=== PATIENT | male | born 1990 | race Caucasian/White ===

== ENCOUNTER 2022-12-09 18:36 | Emergency (ER) | payer OTHER ==
--- OUTSIDE RECORDS SUMMARY | 2022-12-09 18:40 | XMS REPORT | Continuity of Care Document ---
:1990 Author Organization [facility] t Address [address] [place] [address] Care Team Providers Name Role Phone Leah Martinez MD Primary Care Physician LEAH MARTINEZ Attending Clinician Unavailable Leah Martinez MD Attending Clinician Doctor Unassigned, [place] Attending Clinician Unavailable [facility] Nurse Visit Jennifer Attending Clinician UnavailFrederic Wright MD Attending Clinician FREDERIC COSME Attending Clinician Unavailable BEKAH QUINN Attending Clinician Unavailable BEKAH QUINN Attending Clinician Unavailable PRADEEP CRUZ Attending Clinician Unavailable SHY PHILLIP Attending Clinician Unavailable Payers Payer Name Policy Type Policy Number Effective Date Expiration Date Edvin rojas [facility] [id number] 2016 00:00:00 PLUS Problems Condition Condition Condition Status Onset Resolution Last Treating Co mments Source Name Details Category Date Date Treatment Clinician Date No known No known Disease Unive rs active active ity of problems problems [facility] Allergies, Adverse Reactions, Alerts Allergy Allergy Status Severity Reaction(s) Onset Inactive Treating Comm ents Source Name Type Date Date Clinician NO KNOWN Drug Active Univers ALLERGIE Class ity of S [facility] Social History Social Habit Start Date Stop Date Quantity Comments Source History of tobacco Cigarette Smoker University of use [facility] Exposure to 2022-08-09 2022-08-19 Not sure [facility]-CoV-2 (event) 00:00:00 15:49:00 [facility] Alcohol intake 2022-05-25 2022-05-25 Ex-drinker [facility] 00:00:00 00:00:00 (finding) [facility] Cigarettes smoked 2022-05-14 2022-05-14 Univers ity of current (pack per 00:00:00 00:00:00 [facility] ) - Reported Branch Tobacco use and 2022-05-14 2022-05-14 Smokeless Universit y of exposure 00:00:00 00:00:[address] tobacco non-[address] [facility] 1990 [facility] Smoking Status Start Date Stop Date Source Smokes tobacco daily 2022-05-14 00:00:00 [facility] ity of [facility] Medications Ordered Filled Start Stop Current Ordering Indication Dosage Frequency Signature Comments Components Source Medication Medication Date Date Medication? Clinician (SIG) Name Name ALPRAZolam Yes [id number] .5mg Take 1 U nivers 0.5 mg 2-08 tablet by ity of tablet 00:00: mouth in [place] [id number] the Medical morning Branch and 1 tablet in the evening. ALPRAZolam Yes [id number] .5mg Take 1 U nivers 0.5 mg 2-08 tablet by ity of tablet 00:00: mouth in [place] the Medical morning Branch and 1 tablet in the evening. BUSPIRONE 2021-07 Yes [id number] TAKE 1 Un otoniel 10 mg 0-19 TABLET BY ity of tablet 00:00: MOUTH [place] TWICE A Medical DAY Branch BUSPIRONE 2021-07 Yes [id number] TAKE 1 Un otoniel 10 mg 0-19 TABLET BY ity of tablet 00:00: MOUTH [place] TWICE A Medical DAY Branch BUSPIRONE 2021-07 Yes [id number] TAKE 1 Un oton[place] 10 mg 0-19 TABLET BY ity of tablet 00:00: MOUTH [place] TWICE A Medical DAY Branch BUSPIRONE 2021-07 Yes [id number] TAKE 1 Un otoniel 10 mg 0-19 TABLET BY ity of tablet 00:00: MOUTH [place] TWICE A Medical DAY Branch BUSPIRONE 2021-07 Yes [id number] TAKE 1 Un otoniel 10 mg 0-19 TABLET BY ity of tablet 00:00: MOUTH [place] TWICE A Medical DAY Branch BUSPIRONE 2021-07 Yes [id number] TAKE 1 Un otoniel 10 mg 0-19 TABLET BY ity of tablet 00:00: MOUTH TWICE A Medical DAY Branch BUSPIRONE 2021- Yes [id number] TAKE 1 Un otoniel 10 mg 0-19 TABLET BY ity of tablet 00:00: MOUTH TWICE A Medical DAY Branch BUSPIRONE 2021-1 Yes [id number] TAKE 1 Un otoniel 10 mg 0-19 TABLET BY ity of tablet 00:00: MOUTH TWICE A Medical DAY Branch BUSPIRONE 2021-1 Yes [id number] TAKE 1 Un otoniel 10 mg 0-19 TABLET BY ity of tablet 00:00: MOUTH TWICE A Medical DAY Branch BUSPIRONE 2021-1 Yes [id number] TAKE 1 Un otoniel 10 mg 0-19 TABLET BY ity of tablet 00:00: MOUTH TWICE A Medical DAY Branch BUSPIRONE 2021-1 Yes [id number] TAKE 1 Un otoniel 10 mg 0-19 TABLET BY ity of tablet 00:00: MOUTH TWICE A Medical DAY Branch PROPRANOLOL 2022-0 Yes [id number] TAKE 1 Univers 10 mg 9-13 TABLET BY ity of tablet 00:00: MOUTH TWICE A Medical DAY Branch PROPRANOLOL 2022-0 Yes [id number] TAKE 1 Univers 10 mg 9-13 TABLET BY ity of tablet 00:00: MOUTH TWICE A Medical DAY Branch PROPRANOLOL 2022-0 Yes [id number] TAKE 1 Univers 10 mg 9-13 TABLET BY ity of tablet 00:00: MOUTH TWICE A Medical DAY Branch PROPRANOLOL 2022-0 Yes [id number] TAKE 1 Univers 10 mg 9-13 TABLET BY ity of tablet 00:00: MOUTH TWICE A Medical DAY Branch PROPRANOLOL 2022-0 Yes [id number] TAKE 1 Univers 10 mg 9-13 TABLET BY ity of tablet 00:00: MOUTH TWICE A Medical DAY Branch PROPRANOLOL 2022-0 Yes [id number] TAKE 1 Univers 10 mg 9-13 TABLET BY ity of tablet 00:00: MOUTH TWICE A Medical DAY Branch PROPRANOLOL 2022-0 Yes [id number] TAKE 1 Univers 10 mg 9-13 TABLET BY ity of tablet 00:00: MOUTH TWICE A Medical DAY Branch PROPRANOLOL 2022-0 Yes [id number] TAKE 1 Univers 10 mg 9-13 TABLET BY ity of tablet 00:00: MOUTH TWICE A Medical DAY Branch PROPRANOLOL 2-0 Yes [id number] TAKE 1 Univers 10 mg 9-13 TABLET BY ity of tablet 00:00: MOUTH [place] 00 TWICE A Medical DAY Branch PROPRANOLOL 2-0 Yes [id number] TAKE 1 Univers 10 mg 9-13 TABLET BY ity of tablet 00:00: MOUTH [place] 00 TWICE A Medical DAY Branch PROPRANOLOL 2022-0 Yes [id number] TAKE 1 Univers 10 mg 9-13 TABLET BY ity of tablet 00:00: MOUTH [place] 00 TWICE A Medical DAY Branch PROPRANOLOL 2022-0 Yes [id number] TAKE 1 Univers 10 mg 9-13 TABLET BY ity of tablet 00:00: MOUTH [place] 00 TWICE A Medical DAY Branch QUEtiapine 2021-0 Yes [id number] 50mg Take 1 U nivers (SEROQUEL) 8-08 tablet by ity of 50 mg 00:00: mouth at [place] tablet 00 bedtime. Medical Branch QUEtiapine 2021-0 Yes [id number] 50mg Take 1 U nivers (SEROQUEL) 8-08 tablet by ity of 50 mg 00:00: mouth at [place] tablet 00 bedtime. Medical Branch QUEtiapine 0 Yes [id number] 50mg Take 1 U nivers (SEROQUEL) 8-08 tablet by ity of 50 mg 00:00: mouth at [place] tablet 00 bedtime. Medical Branch QUEtiapine 0 Yes [id number] 50mg Take 1 U nivers (SEROQUEL) 8-08 tablet by ity of 50 mg 00:00: mouth at [place] tablet 00 bedtime. Medical Branch QUEtiapine 2021-0 Yes [id number] 50mg Take 1 U nivers (SEROQUEL) 8-08 tablet by ity of 50 mg 00:00: mouth at [place] tablet 00 bedtime. Medical Branch QUEtiapine 0 Yes [id number] 50mg Take 1 U nivers (SEROQUEL) 8-08 tablet by ity of 50 mg 00:00: mouth at [place] tablet 00 bedtime. Medical Branch QUEtiapine 0 Yes [id number] 50mg Take 1 U nivers (SEROQUEL) 8-08 tablet by ity of 50 mg 00:00: mouth at [place] tablet 00 bedtime. Medical Branch QUEtiapine 2021-0 Yes [id number] 50mg Take 1 U nivers (SEROQUEL) 8-08 tablet by ity of 50 mg 00:00: mouth at [place] tablet 00 bedtime. Medical Branch QUEtiapine 0 Yes [id number] 50mg Take 1 U nivers (SEROQUEL) 8-08 tablet by ity of 50 mg 00:00: mouth at [place] tablet 00 bedtime. Medical Branch QUEtiapine Yes [id number] 50mg Take 1 U nivers (SEROQUEL) 8-08 tablet by ity of 50 mg 00:00: mouth at [place] tablet 00 bedtime. Medical Branch QUEtiapine Yes [id number] 50mg Take 1 U nivers (SEROQUEL) 8-08 tablet by ity of 50 mg 00:00: mouth at [place] tablet 00 bedtime. Medical Branch QUEtiapine Yes [id number] 50mg Take 1 U nivers (SEROQUEL) 8-08 tablet by ity of 50 mg 00:00: mouth at [place] tablet 00 bedtime. Medical Branch QUEtiapine Yes [id number] 50mg Take 1 U nivers (SEROQUEL) 8-08 tablet by ity of 50 mg 00:00: mouth at [place] tablet 00 bedtime. Medical Branch QUEtiapine Yes [id number] 50mg Take 1 U nivers (SEROQUEL) 8-08 tablet by ity of 50 mg 00:00: mouth at [place] tablet 00 bedtime. Medical Branch ALPRAZOLAM Yes [id number] TAKE 1 U nivers 0.5 mg 3-17 TABLET BY ity of tablet 00:00: MOUTH [place] 00 TWICE A Medical DAY Branch ALPRAZOLAM Yes [id number] TAKE 1 U nivers 0.5 mg 3-17 TABLET BY ity of tablet 00:00: MOUTH [place] 00 TWICE A Medical DAY Branch ALPRAZOLAM 0 Yes [id number] TAKE 1 U nivers 0.5 mg 3-17 TABLET BY ity of tablet 00:00: MOUTH [place] 00 TWICE A Medical DAY Branch ALPRAZOLAM 0 Yes [id number] TAKE 1 U nivers 0.5 mg 3-17 TABLET BY ity of tablet 00:00: MOUTH [place] 00 TWICE A Medical DAY Branch ALPRAZOLAM Yes [id number] TAKE 1 U nivers 0.5 mg 3-17 TABLET BY ity of tablet 00:00: MOUTH [place] 00 TWICE A Medical DAY Branch ALPRAZOLAM 0 Yes [id number] TAKE 1 U nivers 0.5 mg 3-17 TABLET BY ity of tablet 00:00: MOUTH 00 TWICE A Medical DAY Branch ALPRAZOLAM 0 Yes [id number] TAKE 1 U nivers 0.5 mg 3-17 TABLET BY ity of tablet 00:00: MOUTH [place] 00 TWICE A Medical DAY Branch ALPRAZOLAM 0 Yes [id number] TAKE 1 U nivers 0.5 mg 3-17 TABLET BY ity of tablet 00:00: MOUTH 00 TWICE A Medical DAY Branch ALPRAZOLAM 0 Yes [id number] TAKE 1 U nivers 0.5 mg 3-17 TABLET BY ity of tablet 00:00: MOUTH 00 TWICE A Medical DAY Branch ALPRAZOLAM 0 Yes [id number] TAKE 1 U nivers 0.5 mg 3-17 TABLET BY ity of tablet 00:00: MOUTH 00 TWICE A Medical DAY Branch ALPRAZOLAM 0 Yes [id number] TAKE 1 U nivers 0.5 mg 3-17 TABLET BY ity of tablet 00:00: MOUTH 00 TWICE A Medical DAY Branch ALPRAZOLAM 0 2022- No [id number] TAKE 1 Univers 0.5 mg 3-17 02-08 TABLET BY ity of tablet 00:00: 00:00 MOUTH [place] 00 :00 TWICE A Medical DAY Branch ALPRAZOLAM 2021-0 2022- No [id number] TAKE 1 Univers 0.5 mg 3-17 02-08 TABLET BY ity of tablet 00:00: 00:00 MOUTH [place] 00 :00 TWICE A Medical DAY Branch busPIRone 2020-07 Yes [id number] 10mg Take 1 Un otoniel 10 mg 1-17 tablet by ity of tablet 00:00: mouth 2 00 (two) Medical times Branch daily. benztropine 2020-07 Yes [id number] 2mg Take 1 Univers 2 mg tablet 1-17 tablet by ity of 00:00: mouth 2 00 (two) Medical times Branch daily. propranoloL 2020-07 Yes [id number] 10mg Take 1 Univers 10 mg 1-17 tablet by ity of tablet 00:00: mouth 2 00 (two) Medical times Branch daily. busPIRone 2020-07 Yes [id number] 10mg Take 1 Un otoniel 10 mg 1-17 tablet by ity of tablet 00:00: mouth (two) Medical times Branch daily. benztropine 2020-07 Yes [id number] 2mg Take 1 Univers 2 mg tablet 1-17 tablet by ity of 00:00: mouth (two) Medical times Branch daily. propranoloL 2020-07 Yes [id number] 10mg Take 1 Univers 10 mg 1-17 tablet by ity of tablet 00:00: mouth (two) Medical times Branch daily. busPIRone 2020-07 Yes [id number] 10mg Take 1 Un otoniel 10 mg 1-17 tablet by ity of tablet 00:00: mouth (two) Medical times Branch daily. benztropine 2020-07 Yes [id number] 2mg Take 1 Univers 2 mg tablet 1-17 tablet by ity of 00:00: mouth (two) Medical times Branch daily. benztropine 2020-07 Yes [id number] 2mg Take 1 Univers 2 mg tablet 1-17 tablet by ity of 00:00: mouth (two) Medical times Branch daily. benztropine 2020-07 Yes [id number] 2mg Take 1 Univers 2 mg tablet 1-17 tablet by ity of 00:00: mouth (two) Medical times Branch daily. benztropine 2020-07 Yes [id number] 2mg Take 1 Univers 2 mg tablet 1-17 tablet by ity of 00:00: mouth (two) Medical times Branch daily. benztropine 2020-07 Yes [id number] 2mg Take 1 Univers 2 mg tablet 1-17 tablet by ity of 00:00: mouth (two) Medical times Branch daily. benztropine 2020-07 Yes [id number] 2mg Take 1 Univers 2 mg tablet 1-17 tablet by ity of 00:00: mouth (two) Medical times Branch daily. benztropine 2020-07 Yes [id number] 2mg Take 1 Univers 2 mg tablet 1-17 tablet by ity of 00:00: mouth (two) Medical times Branch daily. benztropine 2020-07 Yes [id number] 2mg Take 1 Univers 2 mg tablet 1-17 tablet by ity of 00:00: mouth 2 [place] (two) Medical times Branch daily. benztropine 2020-07 Yes [id number] 2mg Take 1 Univers 2 mg tablet 1-17 tablet by ity of 00:00: mouth 2 [place] 00 (two) Medical times Branch daily. benztropine 2020-07 Yes [id number] 2mg Take 1 Univers 2 mg tablet 1-17 tablet by ity of 00:00: mouth 2 [place] 00 (two) Medical times Branch daily. benztropine 2020-07 Yes [id number] 2mg Take 1 Univers 2 mg tablet 1-17 tablet by ity of 00:00: mouth 2 [place] (two) Medical times Branch daily. benztropine 2020-07 Yes [id number] 2mg Take 1 Univers 2 mg tablet 1-17 tablet by ity of 00:00: mouth 2 [place] (two) Medical times Branch daily. busPIRone 2020-07- No [id number] 10mg Take 1 U nivers 10 mg 1-17 10-19 tablet by ity of tablet 00:00: 00:00 mouth 2 [place] 00 :00 (two) Medical times Branch daily. propranoloL 2020-07- No [id number] 10mg Take 1 Univers 10 mg 1-17 09-13 tablet by ity of tablet 00:00: 00:00 mouth 2 [place] 00 :00 (two) Medical times Branch daily. mirtazapine 0 Yes Univer s 15 mg 9-18 ity of tablet 00:00: [place] Medical Branch mirtazapine 2020-0 Yes Univer s 15 mg 9-18 ity of tablet 00:00: [place] Medical Branch mirtazapine 2020-0 Yes Univer s 15 mg 9-18 ity of tablet 00:00: [place] Medical Branch mirtazapine 2020-0 Yes Univer s 15 mg 9-18 ity of tablet 00:00: [place] Medical Branch mirtazapine 2020-0 Yes Univer s 15 mg 9-18 ity of tablet 00:00: [place] Medical Branch mirtazapine 2020-0 Yes Univer s 15 mg 9-18 ity of tablet 00:00: [place] 00 Medical Branch mirtazapine 2021-0 Yes Univer s 15 mg 9-18 ity of tablet 00:00: [place] 00 Medical Branch mirtazapine 2021-0 Yes Univer s 15 mg 9-18 ity of tablet 00:00: [place] 00 Medical Branch mirtazapine 2021-0 Yes Univer s 15 mg 9-18 ity of tablet 00:00: [place] 00 Medical Branch mirtazapine 2021-0 Yes Univer s 15 mg 9-18 ity of tablet 00:00: [place] [address] Medical Branch mirtazapine 2021-0 Yes Univer s 15 mg 9-18 ity of tablet 00:00: [place] [address] Medical Branch mirtazapine 1-0 Yes Univer s 15 mg 9-18 ity of tablet 00:00: [place] [address] Medical Branch mirtazapine 1-0 Yes Univer s 15 mg 9-18 ity of tablet 00:00: [place] [address] Medical Branch mirtazapine 2021-0 Yes Univer s 15 mg 9-18 ity of tablet 00:00: [place] 00 Medical Branch hydrOXYzine 2021-0 Yes Univer s 25 mg 9-16 ity of capsule 00:00: [place] [address] Medical Branch hydrOXYzine 2021-0 Yes Univer s 25 mg 9-16 ity of capsule 00:00: [place] [address] Medical Branch hydrOXYzine 1-0 Yes Univer s 25 mg 9-16 ity of capsule 00:00: [place] [address] Medical Branch hydrOXYzine 2021-0 Yes Univer s 25 mg 9-16 ity of capsule 00:00: [place] 00 Medical Branch hydrOXYzine 2021-0 Yes Univer s 25 mg 9-16 ity of capsule 00:00: [place] [address] Medical Branch hydrOXYzine 2021-0 Yes Univer s 25 mg 9-16 ity of capsule 00:00: [place] [address] Medical Branch hydrOXYzine 1-0 Yes Univer s 25 mg 9-16 ity of capsule 00:00: [place] [address] Medical Branch hydrOXYzine 2021-0 Yes Univer s 25 mg 9-16 ity of capsule 00:00: [place] [address] Medical Branch hydrOXYzine 2021-0 Yes Univer s 25 mg 9-16 ity of capsule 00:00: [place] [address] Medical Branch hydrOXYzine 1-0 Yes Univer s 25 mg 9-16 ity of capsule 00:00: [place] 00 Medical Branch hydrOXYzine 2020-0 Yes Univer s 25 mg 9-16 ity of capsule 00:00: [place] 00 Medical Branch hydrOXYzine 2020-0 3- No Unive rs 25 mg 03-27 ity of capsule 00:00: 00:00 [place] 00 :00 Medical Branch hydrOXYzine 2020-0 3- No Unive rs 25 mg 03-27 ity of capsule 00:00: 00:00 [place] 00 :00 Medical Branch Vital Signs Vital Name Observation Time Observation Value Comments Source Systolic blood 2022-08-19 21:56:00 136 mm[Hg] Univer sity of [facility] Branch Diastolic blood 2022-08-19 21:56:00 86 mm[Hg] [facility]ive [facility] of [facility] Branch Heart rate 2022-08-19 21:51:00 99 /min Universi ty of [facility] Body height 2022-08-19 21:51:00 172.7 cm Universi ty of [facility] Body weight 2022-08-19 21:51:00 73.029 kg Universi ty of [facility] BMI 2022-08-19 21:51:00 24.48 kg/m2 Universi ty of [facility] Body height 2022-05-25 16:59:00 172.7 cm Universi ty of [facility] Body height 2022-05-08 13:45:00 177.8 cm Universi ty of [facility] Systolic blood 2022-02-16 16:29:00 135 mm[Hg] Univer sity of [facility] Branch Diastolic blood 2022-02-16 16:29:00 87 mm[Hg] Unive rsity of [facility] Branch Heart rate 2022-02-16 16:29:00 71 /min Universi ty of [facility] Branch Body height 2022-02-16 16:29:00 177.8 cm Universi ty of [facility] Branch Body weight 2022-02-16 16:29:00 64.864 kg Universi ty of [facility] BMI 2022-02-16 16:29:00 20.52 kg/m2 [facility]i ty [facility] Procedures Procedure Date / Time Performing Clinician Source Performed ASSIGNMENT OF BENEFITS 2022-08-19 21:50:10 Doctor Unassigned, No [facility] Name Medical Branch AUTHORIZATION FOR 2022-08-03 06:01:00 Doctor Unassigned, No [facility] RELEASE OF [facility] Encounters Start End Encounter Admission Attending Care Care Encounter Source Date/Time Date/Time Type Type Clinicians Facility Department ID 2022-09-07 2022-09-07 Outpatient [facility] [id number] [place] 11:41:51 11:41:51 [id number] [facility] 2022-09-02 2022-09-02 Outpatient Tommy MARTINEZ [facility] [id number] Univers 16:00:00 16:00:00 LEAH [facility] 2022-08-25 2022-08-25 Outpatient [facility] [id number] [place] 16:39:43 16:39:43 [id number] [facility] 2022-08-19 2022-08-19 Office KelseaRUST 1.2.840.114 [id number] Univers 16:00:00 16:15:00 Visit [facility] [id number] it y of [place] [id number] Kirill as CHAD?BLEA [id number] [address] MEDICAL OFFICE BUILDING 2022-08-19 2022-08-19 Outpatient Tommy MARTINEZ [facility] [id number] Univers 16:00:00 16:00:00 LEAH [facility] 2022-08-19 2022-08-19 Orders Doctor SUERO 1.2.840.114 [id number] Univers 00:00:00 00:00:00 Only Unassigned, KORIN [id number] ity of [place] [facility] [id number] Kirill as [id number] [address] 2022-08-03 2022-08-03 Orders Doctor SUERO 1.2.840.114 [id number] Univers 00:00:00 00:00:00 Only Unassigned, KORIN [id number] ity of [place] [facility] [id number] Kirill as [id number] [address] 2022-05-25 2022-05-25 Nurse Esposito [facility] Nurse Visit Jennifer [facility] 1.2.840.114 [id number] Univers 11:00:00 11:15:00 Visit Frederic Cosme MULTISPEC 350.1.13.1 0 ity of [place] [id number] [facility] [id number] [address] DIABETES CLINIC 2022-05-25 2022-05-25 Outpatient Tommy COSME [facility] [id number] Univers 11:00:00 11:00:00 FREDERIC marino [facility] 2022-05-21 2022-05-21 Outpatient [facility] [id number] [place] 09:01:05 09:01:05 [address] [place] 2022 2022 Outpatient [facility] [id number] [place] 15:04:46 15:04:46 [address] [place] 2022-05-14 2022-05-14 Outpatient Tommy COSME [facility] [id number] Univers 08:30:00 17:02:11 FREDERIC marino [facility] 2022-05-14 2022-05-14 Office BaRUST 1.2.840.114 [id number] Univers 08:30:00 09:00:00 Visit Frederic Sanders MULTISPEC [id number] ity of [place] 4.2.7.2.686 [facility] [id number] [address] DIABETES CLINIC 2022-05-12 2022-05-12 Outpatient Tommy MARTINEZ [facility] [id number] Univers 09:45:00 09:45:00 LEAH marino [facility] 2022-05-08 2022-05-08 Office Bekah Quinn [facility] 1.2.840.114 [id number] Univers 09:00:00 09:00:00 Visit MULTISPEC [id number] ity of [place] 4.2.7.2.686 [facility] [id number] [address] DIABETES CLINIC 2022-05-08 2022-05-08 Outpatient BEKAH DE LA ROSA [facility] [id number] Univers 09:00:00 08:59:01 BEKAH QUINN y [facility] 2022-05-06 2022-05-06 Outpatient Tommy MARTINEZ [facility] [id number] Univers 11:30:00 11:30:00 LEAH marino [facility] 2022-05-05 2022-05-05 [facility] 1.2.840.114 [id number] Univers 00:00:00 00:00:00 [facility] [id number] it y of [place] 4.2.7.2.686 Kirill as CHAD?BLEA [id number] [address] MEDICAL OFFICE [facility] 2022-04-29 2022-04-29 [facility] 1.2.840.114 [id number] Univers 00:00:00 00:00:00 Leah HEALTH 350.1.13.10 it y of [place] 4.2.7.2.686 Kirill as CHAD?BLEA [id number] [address] OFFICE [facility] 2022-03-24 2022-03-24 [facility] 1.2.840.114 [id number] [facility] 00:00:00 00:00:00 Leah HEALTH 350.1.13.10 it y of [place] 4.2.7.2.686 Kirill as CHAD?BLEA [id number] [address] OFFICE [facility] 2022-03-19 2022-03-19 Outpatient Tommy MARTINEZ [facility] [id number] Univers 13:00:00 13:00:00 LEAH [facility] 2022-02-16 2022-02-16 [facility] 1.2.840.114 [id number] Univers 11:15:00 11:30:00 Visit [facility] 350.1.13.10 it y of [place] 4.2.7.2.686 Kirill as CHAD?BLEA [id number] [address] OFFICE [facility] 2022-02-16 2022-02-16 Outpatient Tommy MARTINEZ [facility] [id number] Univers 11:15:00 11:15:00 LEAH [facility] 2022-02-16 2022-02-16 [facility] [id number] Univers 11:15:00 11:15:00 LEAH alexia [facility] 2022-02-16 2022-02-16 Telephone [facility] 1.2.840.114 [id number] Univers 00:00:00 00:00:00 [facility] [id number] it y of [place] [id number] Kirill as CHAD?BLEA [id number] [address] MEDICAL OFFICE [facility] 2021-10-27 2021-10-27 [facility] 1.2.840.114 [id number] Univers 00:00:00 00:00:00 Leah HEALTH 350.1.13.10 it y of [place] 4.2.7.2.686 Kirill as CHAD?BLEA [id number] [address] OFFICE [facility] 2021-08-18 2021-08-18 [facility] 1.2.840.114 [id number] Univers 00:00:00 00:00:00 Leah HEALTH [id number] it y of [place] 4.2.7.2.686 Kirill as CHAD?BLEA [id number] [address] 2021-07-18 2021-07-18 [facility] 1.2.840.114 [id number] Univers 00:00:00 00:00:00 Leah HEALTH 350.1.13.10 it y of [place] 4.2.7.2.686 Kirill as CHAD?BLEA [id number] [address] OFFICE [facility] 2021-07-07 2021-07-07 [facility] [id number] Univers 13:15:00 13:15:00 LEAH alexia [facility] 2021-06-27 2021-06-27 Telephone [facility] 1.2.840.114 [id number] Univers 00:00:00 00:00:00 Leah HEALTH 350.1.13.10 it y of [place] [id number] Kirill as CHAD?BLEA [id number] [address] MEDICAL OFFICE [facility] 2021-06-12 2021-06-12 [facility] [id number] Univers 09:30:00 09:30:00 PRADEEP alexia [facility] 2021-06-10 2021-06-10 [facility] [id number] Univers 13:30:00 13:30:00 PRADEEP [facility] 2021-06-03 2021-06-03 [facility] [id number] Univers 15:15:00 15:15:00 LEAH [facility] 2021-05-28 2021-05-28 Office [facility] 1.2.840.114 [id number] Univers 16:46:42 17:04:56 Visit [place] [id number] [facility] [id number] Kirill as CHAD?BLEA [id number] [address] OFFICE [facility] 2021-05-28 2021-05-28 [facility] [id number] Univers 16:15:00 17:04:56 [facility] 2021-05-23 2021-05-23 Telephone [facility] 1.2.840.114 [id number] Univers 00:00:00 00:00:00 [facility] [id number] it y of [place] [id number] Kirill as CHAD?BLEA [id number] [address] MEDICAL OFFICE [facility] 2021-05-01 2021-05-01 [facility] [id number] Univers 09:30:00 09:30:00 PRADEEP [facility] 2021-04-09 2021-04-09 Office [facility] [id number] Univers 13:56:04 14:11:04 Visit [facility] [id number] it y of [place] [id number] Kirill as Chad?Blea [phone] N[place] mitch haque [address] [place] [address] Medical Office Building 2021-04-09 2021-04-09 Outpatient Tommy [facility]ARTINEZ [facility] [id number] Univers 14:00:00 14:00:00 LEAH [facility] 2021-04-08 2021-04-08 Outpatient Tommy GREGORIOASHLEY [facility] [id number] Univers 14:15:00 14:15:00 LEAH [facility] 2021-04-08 2021-04-08 Outpatient Tommy [facility]IOASHLEY [facility] [id number] Univers 09:00:00 09:00:00 LEAH [facility] 2021-04-02 2021-04-02 Outpatient Tommy PHILLIP [facility] [id number] Univers 10:30:00 10:30:00 SHY [facility] 2021-04-02 2021-04-02 Orders Doctor NIMO [id number] Univers 00:00:00 00:00:00 Only Unassigned, KORIN [id number] ity of [place] [facility] [id number] Kirill as [phone] [address] 2020-04-15 2020-04-15 Outpatient Tommy [facility]ARTINEZ [facility] [id number] Univers 09:00:00 09:00:00 [facility] 2020-04-03 2020-04-03 Outpatient Tommy [facility]INEZ [facility] [id number] Univers 09:15:00 09:15:00 LEAH [facility] 2020-03-04 2020-03-04 Outpatient Tommy [facility]ARTINZE [facility] [id number] Univers 09:30:00 09:30:00 LEAH [facility] 2020-01-15 2020-01-15 Outpatient Tommy [facility]INEZ [facility] [id number] Univers 14:30:00 14:30:00 [facility] 2020-01-02 2020-01-02 Outpatient Tommy [facility]INEZ [facility] [id number] Univers 13:30:00 13:30:00 [facility] Results This patient has no known results.
--- NOTE | 2022-12-09 20:02 | ER ---
Nurse's Notes [facility] Name: Mickey Lee Age: 32 yrs Sex: Male : 1990 Arrival Date: 12/09/2022 Time: 18:36 Bed 11 Private MD: Diagnosis: Pain in left foot Presentation: 12/09 18:50 Chief complaint: Patient states: jumped into a pool and landed on side of left foot. iw Coronavirus screen: At this time, the client does not indicate any symptoms associated with coronavirus-19. Ebola Screen: Patient negative for fever greater than or equal to 101.5 degrees Fahrenheit, and additional compatible Ebola Virus Disease symptoms Patient denies exposure to infectious person. Patient denies travel to an Ebola-affected area in the 21 days before illness onset. No symptoms or risks identified at this time. Initial Sepsis Screen: Does the patient meet any 2 criteria? No. Patient's initial sepsis screen is negative. Does the patient have a suspected source of infection? No. Patient's initial sepsis screen is negative. Risk Assessment: Do you want to hurt yourself or someone else? Patient reports no desire to harm self or others. Onset of symptoms was December 09, 2022. 18:50 Method Of Arrival: Wheelchair iw 18:50 Acuity: MISBAH 4 iw Historical: - Allergies: 18:51 No Known Allergies; iw - PMHx: 18:51 Anxiety; Depression; Schizophrenia; Tachycardia; iw - Social history:: Smoking status: Patient reports the use of cigarette tobacco products. Assessment: 20:28 General: Appears in no apparent distress. Pain: Complains of pain in dorsum of left mb9 foot. Neuro: Arriola Agitation-Sedation Scale (RASS): 0 - Alert and Calm Level of Consciousness is awake, alert, obeys commands, Oriented to person, place, time, situation, Appropriate for age. Derm: Skin is pink, warm \T\ dry. Musculoskeletal: Range of motion: intact in all extremities. Vital Signs: 18:50 BP 137 / 115; Pulse 109; Resp 16; Temp 98.8; Pulse Ox 100% on R/A; iw 20:29 BP 130 / 88; Pulse 84; Resp 16; Pulse Ox 100% on R/A; mb9 ED Course: 18:41 Patient arrived in ED. kj1 18:43 Mickey Delgadillo PA is PHCP. cp 18:43 Adebayo Wang MD is Attending Physician. cp 18:51 Triage completed. iw 18:52 Arm band placed on. iw 19:50 Fernanda Shields, RN is Primary Nurse. mb9 20:01 Uriel Mckoy MD is Referral Physician. cp 20:12 XRAY Foot LEFT 3 View In Process Unspecified. EDMS 20:29 No provider procedures requiring assistance completed. Patient did not have IV access mb9 during this emergency room visit. Administered Medications: 20:07 Drug: Ibuprofen PO 800 mg Route: PO; mb9 20:07 Follow up: Response: No adverse reaction mb9 20:07 Drug: Hydrocodone-Acetaminophen PO (7.5 mg-325 mg) 1 tabs Route: PO; mb9 20:07 Follow up: Response: No adverse reaction mb9 Outcome: 20:01 Discharge ordered by MD. cp 20:29 Discharged to home via wheelchair. mb9 20:29 Condition: stable 20:29 Discharge instructions given to patient, Instructed on discharge instructions, follow up and referral plans. Demonstrated understanding of instructions, follow-up care, medications, Prescriptions given X 1. 20:29 Patient left the ED. mb9 Signatures: Dispatcher [employer] EDMS Suzanne Matamoros, SAHIL RN Mickey Venegas PA PA cp Cindy Lawrence kj1 Fernanda Shields, RN RN mb9
--- NOTE | 2022-12-09 20:02 | EDPHYS ---
Physician Documentation [facility] Name: Mickey Lee Age: 32 yrs Sex: Male : 1990 Arrival Date: 12/09/2022 Time: 18:36 Bed 11 Private MD: ED Physician Adebayo Wang HPI: 12/09 19:00 This 32 yrs old Male presents to ER via Wheelchair with complaints of Foot Injury. cp 19:00 The patient presents with an injury, pain, that is acute. The complaints affect the cp lateral aspect of left foot and dorsum of left foot. Context: resulted from jumping into pool. Historical: - Allergies: 18:51 No Known Allergies; iw - PMHx: 18:51 Anxiety; Depression; Schizophrenia; Tachycardia; iw - Social history:: Smoking status: Patient reports the use of cigarette tobacco products. ROS: 19:05 Constitutional: Negative for body aches, chills, fever, poor PO intake. cp 19:05 Neck: Negative for pain with movement, pain at rest. cp 19:05 Cardiovascular: Negative for chest pain. 19:05 Respiratory: Negative for cough, shortness of breath, wheezing. 19:05 Abdomen/GI: Negative for abdominal pain, nausea, vomiting, and diarrhea. 19:05 MS/extremity: Positive for pain, of the left foot, Negative for decreased range of motion, deformity, paresthesias. 19:05 Neuro: Negative for altered mental status, dizziness, headache, weakness. 19:05 All other systems are negative. Exam: 19:10 Constitutional: The patient appears in no acute distress, alert, awake, non-toxic, well cp developed, well nourished, uncomfortable. 19:10 Head/Face: Normocephalic, atraumatic. cp 19:10 Chest/axilla: Inspection: normal. 19:10 Cardiovascular: Rate: normal, Pulses: Pulses are 2+ in left dorsalis pedis artery. 19:10 Respiratory: the patient does not display signs of respiratory distress, Respirations: normal, no use of accessory muscles, no retractions. 19:10 Musculoskeletal/extremity: Extremities: grossly normal except: noted in the left foot: pain, tenderness to palpation dorsum left foot and mild swelling, There is no evidence of decreased ROM, deformity. Vital Signs: 18:50 BP 137 / 115; Pulse 109; Resp 16; Temp 98.8; Pulse Ox 100% on R/A; iw 20:29 BP 130 / 88; Pulse 84; Resp 16; Pulse Ox 100% on R/A; mb9 MDM: 18:54 Patient medically screened. cp 19:10 Differential diagnosis: dislocation, closed fracture, contusion, sprain. cp 19:58 Data reviewed: vital signs, nurses notes, radiologic studies, plain films. Independent cp interpretation of the following test(s) in the Emergency Department X-Ray: My interpretation is left foot negative for fracture. 20:00 Counseling: I had a detailed discussion with the patient and/or guardian regarding: the cp historical points, exam findings, and any diagnostic results supporting the discharge/admit diagnosis, radiology results, to return to the emergency department if symptoms worsen or persist or if there are any questions or concerns that arise at home. 20:00 Response to treatment: the patient's symptoms have mildly improved after treatment, and cp as a result, I will discharge patient. 12/09 18:55 Order name: XRAY Foot LEFT 3 View cp 12/09 19:59 Order name: Crutches; Complete Time: 20:20 cp 12/09 19:59 Order name: Campos Wrap; Complete Time: 20:20 cp Administered Medications: 20:07 Drug: Ibuprofen PO 800 mg Route: PO; mb9 20:07 Follow up: Response: No adverse reaction mb9 20:07 Drug: Hydrocodone-Acetaminophen PO (7.5 mg-325 mg) 1 tabs Route: PO; mb9 20:07 Follow up: Response: No adverse reaction mb9 Disposition Summary: 12/09/22 20:01 Discharge Ordered Location: Home cp Problem: new cp Symptoms: have improved cp Condition: Stable cp Diagnosis - Pain in left foot cp Followup: cp - With: Uriel Mckoy MD - When: 2 - 3 days - Reason: Worsening of condition Discharge Instructions: - Discharge Summary Sheet cp - Foot Pain cp Forms: - Medication Reconciliation Form cp - Thank You Letter cp - Antibiotic Education cp - Prescription Opioid Use cp Prescriptions: - Ibuprofen 800 mg Oral Tablet - take 1 tablet by ORAL route every 8 hours As needed take with food; 30 tablet; cp Refills: 0, Product Selection Permitted Signatures: Dispatcher [employer] Suzanne Jiménez RN RN iw Mickey Delgadillo PA PA cp Breneman, Mary Beth, RN RN mb9 Corrections: (The following items were deleted from the chart) 12/10 18:18 18:15 Constitutional: The patient appears in no acute distress, cp cp 18:27 18:27 Counseling: I had a detailed discussion with the patient and/or guardian cp regarding: the historical points, exam findings, and any diagnostic results supporting the discharge/admit diagnosis, radiology results, to return to the emergency department if symptoms worsen or persist or if there are any questions or concerns that arise at home, cp
[2022-12-09] MEDS ORDERED: IBUPROFEN 400 MG TAB ONE (20:07)
[2022-12-09] MEDS ORDERED: HYDROCODONE/APAP 7.5/325 MG TAB ONE (20:07)
[2022-12-09 20:41] VITALS: BP 130/88; O2SAT 100
[2022-12-09 20:43] VITALS: TEMP 98.8
--- NOTE | 2022-12-09 21:54 | RAD REPORT ---
EXAM DESCRIPTION: RAD - Foot Left 3 View - 12/09/2022 8:11 pm CLINICAL HISTORY: PAIN COMPARISON: Foot Left 3 View dated 01/22/2014 TECHNIQUE: Left foot, 3 views. FINDINGS: No fracture, dislocation or periosteal reaction. No air or foreign body in the soft tissues. IMPRESSION: Negative left foot radiographs.
== END 2022-12-09 20:29 | disposition home or self-care (01) ==
LOC: ER 18:36
DX: M79.672 Pain in left foot (principal)
CPT/HCPCS: 99283

== ENCOUNTER 2022-12-20 23:20 | Emergency (ER) | payer OTHER ==
--- OUTSIDE RECORDS SUMMARY | 2022-12-20 23:24 | XMS REPORT | Continuity of Care Document ---
:1990 Author Organization [facility] t Address [address] [facility] [place] [address] Care Team Providers Name Role Phone Leah Enamorado MD Primary Care Physician [phone] LEAH ENAMORADO Attending Clinician Unavailable Leah Enamorado MD Attending Clinician Doctor Unassigned, [place] Attending Clinician Unavailable [facility] Nurse Visit Jennifer Attending Clinician UnavailFrederic Wright MD Attending Clinician FREDERIC COSME Attending Clinician Unavailable BEKAH QUINN Attending Clinician Unavailable BEKAH QUINN Attending Clinician Unavailable PRADEPE CRUZ Attending Clinician Unavailable SHY PHILLIP Attending Clinician Unavailable Payers Payer Name Policy Type Policy Number Effective Date Expiration Date Edvin rojas [facility] [id number] 2016 00:00:00 PLUS Problems Condition Condition Condition Status Onset Resolution Last Treating Co mments Source Name Details Category Date Date Treatment Clinician Date No known No known Disease Unive rs active active ity of problems problems [facility] Allergies, Adverse Reactions, Alerts Allergy Allergy Status Severity Reaction(s) Onset Inactive Treating Comm ents Source Name Type Date Date Clinician NO KNOWN Drug Active Univers ALLERGIE Class ity of S [facility] Social History Social Habit Start Date Stop Date Quantity Comments Source History of tobacco Cigarette Smoker University of use [facility] Exposure to 2022-08-09 2022-08-19 Not sure [facility]-CoV-2 (event) 00:00:00 15:49:00 [facility] Alcohol intake 2022-05-25 2022-05-25 Ex-drinker [facility] 00:00:00 00:00:00 (finding) [facility] Cigarettes smoked 2022-05-14 2022-05-14 Univers ity of current (pack per 00:00:00 00:00:00 [facility] ) - Reported Branch Tobacco use and 2022-05-14 2022-05-14 Smokeless Universit y of exposure 00:00:00 00:00:00 tobacco non-user [facility] [birth year] [facility] Smoking Status Start Date Stop Date Source Smokes tobacco daily 2022-05-14 00:00:00 [facility] ity of [facility] Medications Ordered Filled Start Stop Current Ordering Indication Dosage Frequency Signature Comments Components Source Medication Medication Date Date Medication? Clinician (SIG) Name Name ALPRAZolam Yes [id number] .5mg Take 1 U nivers 0.5 mg 2-08 tablet by ity of tablet 00:00: mouth in [place] [address] the Medical morning Branch and 1 tablet in the evening. ALPRAZolam Yes [id number] .5mg Take 1 U nivers 0.5 mg 2-08 tablet by ity of tablet 00:00: mouth in [place] the Medical morning Branch and 1 tablet in the evening. BUSPIRONE 2021-07 Yes [id number] TAKE 1 Un otoniel 10 mg 0-19 TABLET BY ity of tablet 00:00: MOUTH [place] TWICE A Medical DAY Branch BUSPIRONE 2021-07 Yes [id number] TAKE 1 Un otoniel 10 mg 0-19 TABLET BY ity of tablet 00:00: MOUTH [place] TWICE A Medical DAY Branch BUSPIRONE 2021-07 Yes [id number] TAKE 1 Un otoniel 10 mg 0-19 TABLET BY ity of tablet 00:00: MOUTH [place] TWICE A Medical DAY Branch BUSPIRONE 2021-07 Yes [id number] TAKE 1 Un otoniel 10 mg 0-19 TABLET BY ity of tablet 00:00: MOUTH [place] TWICE A Medical DAY Branch BUSPIRONE 2021-07 Yes [id number] TAKE 1 Un otoniel 10 mg 0-19 TABLET BY ity of tablet 00:00: MOUTH [place] TWICE A Medical DAY Branch BUSPIRONE 2021-07 Yes [id number] TAKE 1 Un otoniel 10 mg 0-19 TABLET BY ity of tablet 00:00: MOUTH TWICE A Medical DAY Branch BUSPIRONE 2021- Yes [id number] TAKE 1 Un otoniel 10 mg 0-19 TABLET BY ity of tablet 00:00: MOUTH TWICE A Medical DAY Branch BUSPIRONE 2021-1 Yes [id number] TAKE 1 Un otoniel 10 mg 0-19 TABLET BY ity of tablet 00:00: MOUTH TWICE A Medical DAY Branch BUSPIRONE 2021-1 Yes [id number] TAKE 1 Un otoniel 10 mg 0-19 TABLET BY ity of tablet 00:00: MOUTH TWICE A Medical DAY Branch BUSPIRONE 2021-1 Yes [id number] TAKE 1 Un otoniel 10 mg 0-19 TABLET BY ity of tablet 00:00: MOUTH TWICE A Medical DAY Branch BUSPIRONE 2021-1 Yes [id number] TAKE 1 Un otoniel 10 mg 0-19 TABLET BY ity of tablet 00:00: MOUTH TWICE A Medical DAY Branch PROPRANOLOL 2022-0 Yes [id number] TAKE 1 Univers 10 mg 9-13 TABLET BY ity of tablet 00:00: MOUTH TWICE A Medical DAY Branch PROPRANOLOL 2022-0 Yes [id number] TAKE 1 Univers 10 mg 9-13 TABLET BY ity of tablet 00:00: MOUTH TWICE A Medical DAY Branch PROPRANOLOL 2022-0 Yes [id number] TAKE 1 Univers 10 mg 9-13 TABLET BY ity of tablet 00:00: MOUTH TWICE A Medical DAY Branch PROPRANOLOL 2022-0 Yes [id number] TAKE 1 Univers 10 mg 9-13 TABLET BY ity of tablet 00:00: MOUTH TWICE A Medical DAY Branch PROPRANOLOL 2022-0 Yes [id number] TAKE 1 Univers 10 mg 9-13 TABLET BY ity of tablet 00:00: MOUTH TWICE A Medical DAY Branch PROPRANOLOL 2022-0 Yes [id number] TAKE 1 Univers 10 mg 9-13 TABLET BY ity of tablet 00:00: MOUTH TWICE A Medical DAY Branch PROPRANOLOL 2022-0 Yes [id number] TAKE 1 Univers 10 mg 9-13 TABLET BY ity of tablet 00:00: MOUTH TWICE A Medical DAY Branch PROPRANOLOL 2022-0 Yes [id number] TAKE 1 Univers 10 mg 9-13 TABLET BY ity of tablet 00:00: MOUTH TWICE A Medical DAY Branch PROPRANOLOL 2-0 Yes [id number] TAKE 1 Univers 10 mg 9-13 TABLET BY ity of tablet 00:00: MOUTH [place] 00 TWICE A Medical DAY Branch PROPRANOLOL 2-0 Yes [id number] TAKE 1 Univers 10 mg 9-13 TABLET BY ity of tablet 00:00: MOUTH [place] 00 TWICE A Medical DAY Branch PROPRANOLOL 2022-0 Yes [id number] TAKE 1 Univers 10 mg 9-13 TABLET BY ity of tablet 00:00: MOUTH [place] 00 TWICE A Medical DAY Branch PROPRANOLOL 2022-0 Yes [id number] TAKE 1 Univers 10 mg 9-13 TABLET BY ity of tablet 00:00: MOUTH [place] 00 TWICE A Medical DAY Branch QUEtiapine 2021-0 Yes [id number] 50mg Take 1 U nivers (SEROQUEL) 8-08 tablet by ity of 50 mg 00:00: mouth at [place] tablet 00 bedtime. Medical Branch QUEtiapine 2021-0 Yes [id number] 50mg Take 1 U nivers (SEROQUEL) 8-08 tablet by ity of 50 mg 00:00: mouth at [place] tablet 00 bedtime. Medical Branch QUEtiapine 0 Yes [id number] 50mg Take 1 U nivers (SEROQUEL) 8-08 tablet by ity of 50 mg 00:00: mouth at [place] tablet 00 bedtime. Medical Branch QUEtiapine 0 Yes [id number] 50mg Take 1 U nivers (SEROQUEL) 8-08 tablet by ity of 50 mg 00:00: mouth at [place] tablet 00 bedtime. Medical Branch QUEtiapine 2021-0 Yes [id number] 50mg Take 1 U nivers (SEROQUEL) 8-08 tablet by ity of 50 mg 00:00: mouth at [place] tablet 00 bedtime. Medical Branch QUEtiapine 0 Yes [id number] 50mg Take 1 U nivers (SEROQUEL) 8-08 tablet by ity of 50 mg 00:00: mouth at [place] tablet 00 bedtime. Medical Branch QUEtiapine 0 Yes [id number] 50mg Take 1 U nivers (SEROQUEL) 8-08 tablet by ity of 50 mg 00:00: mouth at [place] tablet 00 bedtime. Medical Branch QUEtiapine 2021-0 Yes [id number] 50mg Take 1 U nivers (SEROQUEL) 8-08 tablet by ity of 50 mg 00:00: mouth at [place] tablet 00 bedtime. Medical Branch QUEtiapine 0 Yes [id number] 50mg Take 1 U nivers (SEROQUEL) 8-08 tablet by ity of 50 mg 00:00: mouth at [place] tablet 00 bedtime. Medical Branch QUEtiapine Yes [id number] 50mg Take 1 U nivers (SEROQUEL) 8-08 tablet by ity of 50 mg 00:00: mouth at [place] tablet 00 bedtime. Medical Branch QUEtiapine Yes [id number] 50mg Take 1 U nivers (SEROQUEL) 8-08 tablet by ity of 50 mg 00:00: mouth at [place] tablet 00 bedtime. Medical Branch QUEtiapine Yes [id number] 50mg Take 1 U nivers (SEROQUEL) 8-08 tablet by ity of 50 mg 00:00: mouth at [place] tablet 00 bedtime. Medical Branch QUEtiapine Yes [id number] 50mg Take 1 U nivers (SEROQUEL) 8-08 tablet by ity of 50 mg 00:00: mouth at [place] tablet 00 bedtime. Medical Branch QUEtiapine Yes [id number] 50mg Take 1 U nivers (SEROQUEL) 8-08 tablet by ity of 50 mg 00:00: mouth at [place] tablet 00 bedtime. Medical Branch ALPRAZOLAM Yes [id number] TAKE 1 U nivers 0.5 mg 3-17 TABLET BY ity of tablet 00:00: MOUTH [place] 00 TWICE A Medical DAY Branch ALPRAZOLAM Yes [id number] TAKE 1 U nivers 0.5 mg 3-17 TABLET BY ity of tablet 00:00: MOUTH [place] 00 TWICE A Medical DAY Branch ALPRAZOLAM 0 Yes [id number] TAKE 1 U nivers 0.5 mg 3-17 TABLET BY ity of tablet 00:00: MOUTH [place] 00 TWICE A Medical DAY Branch ALPRAZOLAM 0 Yes [id number] TAKE 1 U nivers 0.5 mg 3-17 TABLET BY ity of tablet 00:00: MOUTH [place] 00 TWICE A Medical DAY Branch ALPRAZOLAM Yes [id number] TAKE 1 U nivers 0.5 mg 3-17 TABLET BY ity of tablet 00:00: MOUTH [place] 00 TWICE A Medical DAY Branch ALPRAZOLAM 0 Yes [id number] TAKE 1 U nivers 0.5 mg 3-17 TABLET BY ity of tablet 00:00: MOUTH 00 TWICE A Medical DAY Branch ALPRAZOLAM 0 Yes [id number] TAKE 1 U nivers 0.5 mg 3-17 TABLET BY ity of tablet 00:00: MOUTH [place] 00 TWICE A Medical DAY Branch ALPRAZOLAM 0 Yes [id number] TAKE 1 U nivers 0.5 mg 3-17 TABLET BY ity of tablet 00:00: MOUTH 00 TWICE A Medical DAY Branch ALPRAZOLAM 0 Yes [id number] TAKE 1 U nivers 0.5 mg 3-17 TABLET BY ity of tablet 00:00: MOUTH 00 TWICE A Medical DAY Branch ALPRAZOLAM 0 Yes [id number] TAKE 1 U nivers 0.5 mg 3-17 TABLET BY ity of tablet 00:00: MOUTH 00 TWICE A Medical DAY Branch ALPRAZOLAM 0 Yes [id number] TAKE 1 U nivers 0.5 mg 3-17 TABLET BY ity of tablet 00:00: MOUTH 00 TWICE A Medical DAY Branch ALPRAZOLAM 0 2022- No [id number] TAKE 1 Univers 0.5 mg 3-17 02-08 TABLET BY ity of tablet 00:00: 00:00 MOUTH [place] 00 :00 TWICE A Medical DAY Branch ALPRAZOLAM 2021-0 2022- No [id number] TAKE 1 Univers 0.5 mg 3-17 02-08 TABLET BY ity of tablet 00:00: 00:00 MOUTH [place] 00 :00 TWICE A Medical DAY Branch busPIRone 2020-07 Yes [id number] 10mg Take 1 Un otoniel 10 mg 1-17 tablet by ity of tablet 00:00: mouth 2 00 (two) Medical times Branch daily. benztropine 2020-07 Yes [id number] 2mg Take 1 Univers 2 mg tablet 1-17 tablet by ity of 00:00: mouth 2 00 (two) Medical times Branch daily. propranoloL 2020-07 Yes [id number] 10mg Take 1 Univers 10 mg 1-17 tablet by ity of tablet 00:00: mouth 2 00 (two) Medical times Branch daily. busPIRone 2020-07 Yes [id number] 10mg Take 1 Un otoniel 10 mg 1-17 tablet by ity of tablet 00:00: mouth (two) Medical times Branch daily. benztropine 2020-07 Yes [id number] 2mg Take 1 Univers 2 mg tablet 1-17 tablet by ity of 00:00: mouth (two) Medical times Branch daily. propranoloL 2020-07 Yes [id number] 10mg Take 1 Univers 10 mg 1-17 tablet by ity of tablet 00:00: mouth (two) Medical times Branch daily. busPIRone 2020-07 Yes [id number] 10mg Take 1 Un otoniel 10 mg 1-17 tablet by ity of tablet 00:00: mouth (two) Medical times Branch daily. benztropine 2020-07 Yes [id number] 2mg Take 1 Univers 2 mg tablet 1-17 tablet by ity of 00:00: mouth (two) Medical times Branch daily. benztropine 2020-07 Yes [id number] 2mg Take 1 Univers 2 mg tablet 1-17 tablet by ity of 00:00: mouth (two) Medical times Branch daily. benztropine 2020-07 Yes [id number] 2mg Take 1 Univers 2 mg tablet 1-17 tablet by ity of 00:00: mouth (two) Medical times Branch daily. benztropine 2020-07 Yes [id number] 2mg Take 1 Univers 2 mg tablet 1-17 tablet by ity of 00:00: mouth (two) Medical times Branch daily. benztropine 2020-07 Yes [id number] 2mg Take 1 Univers 2 mg tablet 1-17 tablet by ity of 00:00: mouth (two) Medical times Branch daily. benztropine 2020-07 Yes [id number] 2mg Take 1 Univers 2 mg tablet 1-17 tablet by ity of 00:00: mouth (two) Medical times Branch daily. benztropine 2020-07 Yes [id number] 2mg Take 1 Univers 2 mg tablet 1-17 tablet by ity of 00:00: mouth (two) Medical times Branch daily. benztropine 2020-07 Yes [id number] 2mg Take 1 Univers 2 mg tablet 1-17 tablet by ity of 00:00: mouth 2 [place] (two) Medical times Branch daily. benztropine 2020-07 Yes [id number] 2mg Take 1 Univers 2 mg tablet 1-17 tablet by ity of 00:00: mouth 2 [place] 00 (two) Medical times Branch daily. benztropine 2020-07 Yes [id number] 2mg Take 1 Univers 2 mg tablet 1-17 tablet by ity of 00:00: mouth 2 [place] 00 (two) Medical times Branch daily. benztropine 2020-07 Yes [id number] 2mg Take 1 Univers 2 mg tablet 1-17 tablet by ity of 00:00: mouth 2 [place] (two) Medical times Branch daily. benztropine 2020-07 Yes [id number] 2mg Take 1 Univers 2 mg tablet 1-17 tablet by ity of 00:00: mouth 2 [place] (two) Medical times Branch daily. busPIRone 2020-07- No [id number] 10mg Take 1 U nivers 10 mg 1-17 10-19 tablet by ity of tablet 00:00: 00:00 mouth 2 [place] 00 :00 (two) Medical times Branch daily. propranoloL 2020-07- No [id number] 10mg Take 1 Univers 10 mg 1-17 09-13 tablet by ity of tablet 00:00: 00:00 mouth 2 [place] 00 :00 (two) Medical times Branch daily. mirtazapine 0 Yes Univer s 15 mg 9-18 ity of tablet 00:00: [place] Medical Branch mirtazapine 2020-0 Yes Univer s 15 mg 9-18 ity of tablet 00:00: [place] Medical Branch mirtazapine 2020-0 Yes Univer s 15 mg 9-18 ity of tablet 00:00: [place] Medical Branch mirtazapine 2020-0 Yes Univer s 15 mg 9-18 ity of tablet 00:00: [place] Medical Branch mirtazapine 2020-0 Yes Univer s 15 mg 9-18 ity of tablet 00:00: [place] Medical Branch mirtazapine 2020-0 Yes Univer s 15 mg 9-18 ity of tablet 00:00: [place] 00 Medical Branch mirtazapine 2021-0 Yes Univer s 15 mg 9-18 ity of tablet 00:00: [place] 00 Medical Branch mirtazapine 2021-0 Yes Univer s 15 mg 9-18 ity of tablet 00:00: [place] 00 Medical Branch mirtazapine 2021-0 Yes Univer s 15 mg 9-18 ity of tablet 00:00: [place] 00 Medical Branch mirtazapine 2021-0 Yes Univer s 15 mg 9-18 ity of tablet 00:00: [place] [address] Medical Branch mirtazapine 2021-0 Yes Univer s 15 mg 9-18 ity of tablet 00:00: [place] [address] Medical Branch mirtazapine 1-0 Yes Univer s 15 mg 9-18 ity of tablet 00:00: [place] [address] Medical Branch mirtazapine 1-0 Yes Univer s 15 mg 9-18 ity of tablet 00:00: [place] [address] Medical Branch mirtazapine 2021-0 Yes Univer s 15 mg 9-18 ity of tablet 00:00: [place] 00 Medical Branch hydrOXYzine 2021-0 Yes Univer s 25 mg 9-16 ity of capsule 00:00: [place] [address] Medical Branch hydrOXYzine 2021-0 Yes Univer s 25 mg 9-16 ity of capsule 00:00: [place] [address] Medical Branch hydrOXYzine 1-0 Yes Univer s 25 mg 9-16 ity of capsule 00:00: [place] [address] Medical Branch hydrOXYzine 2021-0 Yes Univer s 25 mg 9-16 ity of capsule 00:00: [place] 00 Medical Branch hydrOXYzine 2021-0 Yes Univer s 25 mg 9-16 ity of capsule 00:00: [place] [address] Medical Branch hydrOXYzine 2021-0 Yes Univer s 25 mg 9-16 ity of capsule 00:00: [place] [address] Medical Branch hydrOXYzine 1-0 Yes Univer s 25 mg 9-16 ity of capsule 00:00: [place] [address] Medical Branch hydrOXYzine 2021-0 Yes Univer s 25 mg 9-16 ity of capsule 00:00: [place] [address] Medical Branch hydrOXYzine 2021-0 Yes Univer s 25 mg 9-16 ity of capsule 00:00: [place] [address] Medical Branch hydrOXYzine 1-0 Yes Univer s 25 mg 9-16 ity of capsule 00:00: [place] 00 Medical Branch hydrOXYzine 2020-0 Yes Univer s 25 mg 9-16 ity of capsule 00:00: [place] 00 Medical Branch hydrOXYzine 2020-0 3- No Unive rs 25 mg 03-27 ity of capsule 00:00: 00:00 [place] 00 :00 Medical Branch hydrOXYzine 2020-0 3- No Unive rs 25 mg 03-27 ity of capsule 00:00: 00:00 [place] 00 :00 Medical Branch Vital Signs Vital Name Observation Time Observation Value Comments Source Systolic blood 2022-08-19 21:56:00 136 mm[Hg] Univer [facility]ity [facility] Diastolic blood 2022-08-19 21:56:00 86 mm[Hg] [facility] Heart rate 2022-08-19 21:51:00 99 /min Universi ty of [facility] Body height 2022-08-19 21:51:00 172.7 cm Universi ty of [facility] Body weight 2022-08-19 21:51:00 73.029 kg Universi ty of [facility] BMI 2022-08-19 21:51:00 24.48 kg/m2 Universi ty of [facility] Body height 2022-05-25 16:59:00 172.7 cm Universi ty of [facility] Body height 2022-05-08 13:45:00 177.8 cm Universi ty of [facility] Systolic blood 2022-02-16 16:29:00 135 mm[Hg] Univer sity of [facility] Diastolic blood 2022-02-16 16:29:00 87 mm[Hg] Unive rsity of [facility] Heart rate 2022-02-16 16:29:00 71 /min Universi ty of [facility] Body height 2022-02-16 16:29:00 177.8 cm Universi ty of [facility] Branch Body weight 2022-02-16 16:29:00 64.864 kg Universi ty of [facility] BMI 2022-02-16 16:29:00 20.52 kg/m2 Universi ty of [facility] Procedures Procedure Date / Time Performing Clinician Source Performed ASSIGNMENT OF BENEFITS 2022-08-19 21:50:10 Doctor Unassigned, No [facility] AUTHORIZATION FOR 2022-08-03 06:01:00 Doctor Unassigned, No [facility] RELEASE OF [facility] Encounters Start End Encounter Admission Attending Care Care Encounter Source Date/Time Date/Time Type Type Clinicians Facility Department ID 2022-12-15 Outpatient CBRIDGE CBRIDEDUARDO 2.16.840.1 [facility] 18:57:21 [id number] [id number] 2022-09-07 2022-09-07 Outpatient [facility] [id number] [place] 11:41:51 11:41:51 [id number] [facility] 2022-09-02 2022-09-02 [facility] [id number] Univers 16:00:00 [facility]:00[facility]22-08-[facility] 2022-08-25 Outpatient [facility] [id number] [place] 16:39:43 16:39:43 [id number] [facility] 2022-08-19 2022-08-19 Office [facility] [id number] [facility] 16:00:00 16:15:00 Visit [facility] [id number] it y of Kaleb [place] [id number] Kirill as CHAD?BLEA [id number] [address] MEDICAL OFFICE [facility] 2022-08-19 2022-08-19 Outpatient [facility] [id number] Univers 16:00:00 16:00:00 LEAH marino [facility] 2022-08-19 2022-08-19 Orders Doctor SUERO [id number] Univers 00:00:00 00:00:00 Only Unassigned, KORIN [id number] ity of [place] [facility] [id number] Kirill as [id number] [address] 2022-08-03 2022-08-03 Orders Doctor SUERO [id number] Univers 00:00:00 00:00:00 Only Unassigned, KORIN [id number] ity of [place] [facility] 4.2.7.2.686 Kirill [id number] [address] 2022-05-25 2022-05-25 Blayne Mathis Nurse Visit Jennifer [facility] [id number] [facility] 11:00:00 11:15:00 Visit Frederic Cosme MULTISPEC 350.1.13.1 0 ity of [place] 4.2.7.2.686 [facility] [place] [id number] [address] [facility] 2022-05-25 2022-05-25 Outpatient Tommy COSME [facility] [id number] Univers 11:00:00 11:00:00 FREDERIC marino of [facility] 2022-05-21 2022-05-21 Outpatient [facility] [id number] [place] 09:01:05 09:01:05 [address] [place] 2022 2022 Outpatient [facility] [id number] [place] 15:04:46 15:04:46 1104 [place] 2022-05-14 2022-05-14 Outpatient Tommy COSME [facility] [id number] [facility] 08:30:00 17:02:11 FREDERIC marino [facility] 2022-05-14 2022-05-14 Office Ba [facility] [id number] [facility] 08:30:00 09:00:00 Visit Frederic Sanders MULTISPEC [id number] ity of [place] 4.2.7.2.686 [facility] [id number] [address] [facility]ES [facility] 2022-05-12 2022-05-12 Outpatient Tommy ENAMORADO [facility] [id number] Univers 09:45:00 09:45:00 LEAH italexia of [facility] 2022-05-08 2022-05-08 Office Bekah Quinn [facility] 1.2.840.114 [id number] [facility] 09:00:00 09:00:00 Visit MULTISPEC [id number] ity of [place] 4.2.7.2.686 [facility] [place] [id number] [address] [facility] 2022-05-08 2022-05-08 Outpatient BEKAH DE LA ROSA [facility] [id number] Univers 09:00:00 08:59:01 QUINN BEKAH it y of [facility] 2022-05-06 2022-05-06 Outpatient R KELSEA [facility] [id number] Univers 11:30:00 11:30:00 LEAH alexia [facility] 2022-05-05 2022-05-05 [facility] [id number] [id number] Univers 00:00:00 00:00:00 [facility] [id number] it y of [place] 4.2.7.2.686 Kirill as CHAD?BLEA [id number] [facility] [address] OFFICE [facility] 2022-04-29 2022-04-29 [facility] [id number] Univers 00:00:00 00:00:00 [facility] 350.1.13.10 it y of [place] 4.2.7.2.686 Kirill as CHAD?BLEA [id number] Wy mitch [address] OFFICE [facility] 2022-03-24 2022-03-24 [facility] [id number] [facility] 00:00:00 00:00:00 [facility] 350.1.13.10 it y of [place] 4.2.7.2.686 Kirill as CHAD?BLEA [id number] [address] OFFICE [facility] 2022-03-19 2022-03-19 [facility] [id number] Univers 13:00:00 13:00:00 LEAH [facility] 2022-02-16 2022-02-16 Office [facility] 1.2.840.114 [id number] Univers 11:15:00 11:30:00 Visit [facility] 350.1.13.10 it y of [place] 4.2.7.2.686 Kirill as CHAD?BLEA [id number] Wy mitch [address] OFFICE [facility] 2022-02-162022-02-16 Outpatient Tommy ENAMORADO [facility] [id number] Univers 11:15:00 11:15:00 LEAH marino [facility] 2022-02-16 2022-02-16 Outpatient Tommy ENAMORADO [facility] [id number] Univers 11:15:00 11:15:00 LEAH alexia [facility] 2022-02-16 2022-02-16 Telephone [facility] 1.2.840.114 [id number] Univers 00:00:00 00:00:00 [facility] 350.1.13.10 it y of [place] 4.2.7.2.686 Kirill as CHAD?BLEA [id number] [address] OFFICE [facility] 2021-10-27 2021-10-27 [facility] 1.2.840.114 [id number] Univers 00:00:00 00:00:00 [facility] 350.1.13.10 it y of [place] 4.2.7.2.686 Kirill as CHAD?BLEA [id number] [address] OFFICE [facility] 2021-08-18 2021-08-18 [facility] 1.2.840.114 [id number] Univers 00:00:00 00:00:00 [facility] [id number] it y of [place] 4.2.7.2.686 Kirill as CHAD?BLEA [id number] [address] 2021-07-18 2021-07-18 [facility] 1.2.840.114 [id number] Univers 00:00:00 00:00:00 [facility] HEALTH 350.1.13.10 it y of [place] [id number] Kirill as CHAD?BLEA [id number] [address] 2021-07-07 2021-07-07 Outpatient [facility] [id number] Univers 13:15:00 13:15:00 LEAH jamila [facility] 2021-06-27 2021-06-27 Telephone [facility] 1.2.840.114 [id number] Univers 00:00:00 00:00:00 Leah HEALTH 350.1.13.10 it y of [place] [id number] Kirill as CHAD?BLEA [id number] [address] MEDICAL OFFICE [facility] 2021-06-12 2021-06-12 [facility] [id number] Univers 09:30:00 09:30:00 PRADEEP [facility] 2021-06-10 2021-06-10 [facility] [id number] Univers 13:30:00 13:30:00 PRADEEP [facility] 2021-06-03 2021-06-03 Outpatient [facility] [id number] Univers 15:15:00 15:15:00 LEAH [facility] 2021-05-28 2021-05-28 Office [facility] 1.2.840.114 [id number] Univers 16:46:42 17:04:56 Visit [facility] [id number] it y of [place] 4.2.7.2.686 Kirill as CHAD?BLEA [id number] [address] OFFICE [facility] 2021-05-28 2021-05-28 [facility] [facility] [id number] Univers 16:15:00 17:04:56 [facility] 2021-05-23 2021-05-23 Telephone [facility] [id number] [facility] 00:00:00 00:00:00 [facility] [id number] it y of [place] [id number] Kirill as CHAD?BLEA [phone] [address] OFFICE [facility] 2021-05-01 2021-05-01 [facility] [id number] Univers 09:30:00 09:30:00 PR[facility] 2021-04-09 2021-04-09 [facility] [id number] Univers 13:56:04 14:11:04 Visit [facility] [id number] it y of [place] [id number] Kirill as Chad?Blea [phone] Wy mitch [address] Medical Office Building 2021-04-09 2021-04-09 Outpatient Tommy ENAMORADO [facility] [id number] Univers 14:00:00 14:00:00 LEAH [facility] 2021-04-08 2021-04-08 Outpatient Tommy ENAMORADO [facility] [id number] Univers 14:15:00 14:15:00 LEAH [facility] 2021-04-08 2021-04-08 Outpatient Tommy ENAMORADO [facility] [id number] Univers 09:00:00 09:00:00 LEAH [facility] 2021-04-02 2021-04-02 Outpatient Tommy PHILLIP [facility] [id number] Univers 10:30:00 10:30:00 HSY [facility] 2021-04-02 2021-04-02 Orders Doctor NIMO [id number] Univers 00:00:00 00:00:00 Only Unassigned, KORIN [id number] ity of [place] [facility] [id number] Kirill as [phone] [address] 2020-04-15 2020-04-15 Outpatient Tommy ENAMORADO [facility] [id number] Univers 09:00:00 09:00:00 LEAH alexia [facility] 2020-04-03 2020-04-03 Outpatient Tommy ENAMORADO [facility] [id number] Univers 09:15:00 09:15:00 LEAH alexia [facility] 2020-03-04 2020-03-04 Outpatient Tommy ENAMORADO [facility] [id number] Univers 09:30:00 09:30:00 LEAH [facility] 2020-01-15 2020-01-15 Outpatient Tommy ENAMORADO [facility] [id number] Univers 14:30:00 14:30:00 LEAH [facility] 2020-01-02 2020-01-02 Outpatient Tommy ENAMORADO [facility] [id number] Univers 13:30:00 13:30:00 LEAH marino [facility] Results This patient has no known results.
[2022-12-20] MEDS ORDERED: TETRACAINE HCL 0.5% 4ML OPTH ONE (23:48)
[2022-12-20] MEDS ORDERED: FLUORESCEIN SODIUM 1 MG/WRAP ONE (23:50)
--- NOTE | 2022-12-20 23:59 | ER ---
Nurse's Notes [facility] Name: Mickey Lee Age: 32 yrs Sex: Male : 1990 Arrival Date: 12/20/2022 Time: 23:20 Bed 12 Private MD: Topher Martinez Diagnosis: Foreign body in cornea, left eye;Injury of conjunctiva and corneal abrasion without foreign body, left eye-with FB Presentation: 12/20 23:44 Chief complaint: Patient states: left eye pain began yesterday may have been something kl off ceiling. Coronavirus screen: Vaccine status: Patient reports being unvaccinated. Ebola Screen: Patient negative for fever greater than or equal to 101.5 degrees Fahrenheit, and additional compatible Ebola Virus Disease symptoms. Initial Sepsis Screen: Does the patient meet any 2 criteria? No. Patient's initial sepsis screen is negative. Does the patient have a suspected source of infection? No. Patient's initial sepsis screen is negative. Risk Assessment: Do you want to hurt yourself or someone else? Patient reports no desire to harm self or others. Onset of symptoms was December 19, 2022. 23:44 Method Of Arrival: Ambulatory kl 23:44 Acuity: MISBAH 4 kl Triage Assessment: 23:47 General: Appears uncomfortable, Behavior is calm, cooperative. Pain: Complains of pain kl in left eye. EENT: Eyes are tearing on iris of left eye and inner aspect of conjunctiva of left eye with foreign body noted in inner aspect of conjunctiva of left eye. Neuro: No deficits noted. Cardiovascular: No deficits noted. Respiratory: No deficits noted. GI: No deficits noted. No signs and/or symptoms were reported involving the gastrointestinal system. : No deficits noted. No signs and/or symptoms were reported regarding the genitourinary system. Derm: No deficits noted. No signs and/or symptoms reported regarding the dermatologic system. Musculoskeletal: No deficits noted. No signs and/or symptoms reported regarding the musculoskeletal system. Historical: - Allergies: 23:46 No Known Allergies; kl - Home Meds: 23:46 Cogentin Oral three times a day [Active]; Invega Oral [Active]; Propranolol Oral every kl 12 hours [Active]; - PMHx: 23:46 Anxiety; Depression; Schizophrenia; Tachycardia; kl - Immunization history:: Adult Immunizations up to date. - Social history:: Smoking status: Patient reports the use of cigarette tobacco products. Screenin/12 00:10 [facility] ED Fall Risk Assessment (Adult) History of falling in the last 3 months, including since admission No falls in past 3 months (0 pts) Confusion or Disorientation No (0 pts) Intoxicated or Sedated No (0 pts) Impaired Gait No (0 pts) Mobility Assist Device Used No (0 pt) Altered Elimination No (0 pt) Score/Fall Risk Level 0 - 2 = Low Risk Oriented to surroundings, Maintained a safe environment. Abuse screen: Denies threats or abuse. Nutritional screening: No deficits noted. Tuberculosis screening: No symptoms or risk factors identified. Assessment: 00:10 Reassessment: Patient states feeling better. Patient states symptoms have improved. Vital Signs: 12/20 23:44 BP 128 / 72; Pulse 77; Resp 16; Temp 97(O); Pulse Ox 98% on R/A; Weight 73.03 kg (R); Height 5 ft. 10 in. ; Pain 8/10; 23:44 Body Mass Index 23.10 (73.03 kg, 177.8 cm) 23:44 Pain Scale: Adult ED Course: 23:24 Patient arrived in ED. es 23:24 Topher Martinez MD is Private Physician. es 23:25 Ela Lawrence FNP-C [facility]. kb 23:25 Adebayo Wang MD is Attending Physician. kb 23:46 Triage completed. 12/21 00:10 Patient has correct armband on for positive identification. 00:10 Assist provider with eye exam Assist provider with foreign body removal from left eye. Patient did not have IV access during this emergency room visit. Administered Medications: 00:07 Drug: Tetracaine Ophthalmic Drops 0.5 % 1 drops Route: Ophthalmic; Site: left eye; Medication: 00:10 VIS not applicable for this client. Outcome: 12/20 23:59 Discharge ordered by . 12/21 00:11 Discharged to home ambulatory. Condition: improved Discharge instructions given to patient, Instructed on discharge instructions, follow up and referral plans. medication usage, Demonstrated understanding of instructions, follow-up care, medications, Prescriptions given X 1. 00:11 Patient left the ED. Signatures: Ela Lawrence FNP-C FNP-Christoferb Mendy Hurtado, RN RN Caryn Mims
--- NOTE | 2022-12-21 | EDPHYS ---
Physician Documentation [facility] Name: Mickey Lee Age: 32 yrs Sex: Male : 1990 Arrival Date: 12/20/2022 Time: 23:20 Bed 12 Private MD: Topher Martinez ED Physician Adebayo Wang HPI: 12/21 00:39 This 32 yrs old Male presents to ER via Ambulatory with complaints of Foreign Body In kb Eye. 00:39 The patient is experiencing foreign body sensation, pain, redness. Onset: The kb symptoms/episode began/occurred yesterday. Duration: the symptoms are continuous. Aggravated by nothing. Alleviated by nothing. Associated signs and symptoms: Pertinent positives: None. Severity of symptoms: At their worst the symptoms were moderate in the emergency department the symptoms are unchanged. The patient has not experienced similar symptoms in the past. The patient has not recently seen a physician. Historical: - Allergies: 12/20 23:46 No Known Allergies; kl - Home Meds: 23:46 Cogentin Oral three times a day [Active]; Invega Oral [Active]; Propranolol Oral every kl 12 hours [Active]; - PMHx: 23:46 Anxiety; Depression; Schizophrenia; Tachycardia; kl - Immunization history:: Adult Immunizations up to date. - Social history:: Smoking status: Patient reports the use of cigarette tobacco products. ROS: 12/21 00:37 Constitutional: Negative for fever, chills, and weight loss. kb Eyes: Positive for foreign body sensation, pain, redness, of the left eye. All other systems are negative. Exam: 00:37 Constitutional: This is a well developed, well nourished patient who is awake, alert, kb and in no acute distress. Head/Face: Normocephalic, atraumatic. ENT: Moist Mucous membranes Cardiovascular: Regular rate and rhythm with a normal S1 and S2. No gallops, murmurs, or rubs. No pulse deficits. Respiratory: Respirations even and unlabored. No increased work of breathing. Talking in full sentences Skin: Warm, dry with normal turgor. Normal color. MS/ Extremity: Pulses equal, no cyanosis. Neurovascular intact. Full, normal range of motion. Neuro: Awake and alert, GCS 15, oriented to person, place, time, and situation. Moves all extremities. Normal gait. 00:37 Eyes: Conjunctiva: injected, Corneas: abrasion, that is small, on the left, at 9 o'clock, foreign body, at 9 o'clock. Vital Signs: 12/20 23:44 BP 128 / 72; Pulse 77; Resp 16; Temp 97(O); Pulse Ox 98% on R/A; Weight 73.03 kg (R); kl Height 5 ft. 10 in. ; Pain 8/10; 23:44 Body Mass Index 23.10 (73.03 kg, 177.8 cm) kl 23:44 Pain Scale: Adult kl Procedures: 12/21 00:39 Eye Exam: FB with abrasion noted to left cornea. FB removed with saline/cotton swab. kb MDM: 12/20 23:27 Patient medically screened. kb 12/21 00:38 Differential diagnosis: Corneal abrasion of Corneal ulcer of Foreign body in Acute kb iritis of. Data reviewed: vital signs, nurses notes. Counseling: I had a detailed discussion with the patient and/or guardian regarding: the historical points, exam findings, and any diagnostic results supporting the discharge/admit diagnosis, the need for outpatient follow up, an opthalmologist, to return to the emergency department if symptoms worsen or persist or if there are any questions or concerns that arise at home. 12/20 23:26 Order name: Eye Tray; Complete Time: 23:44 kb 12/20 23:26 Order name: Fluoresene Opth strip; Complete Time: 23:44 kb Administered Medications: 00:07 Drug: Tetracaine Ophthalmic Drops 0.5 % 1 drops Route: Ophthalmic; Site: left eye; kl Disposition Summary: 12/20/22 23:59 Discharge Ordered Location: Home kb Condition: Stable kb Diagnosis - Foreign body in cornea, left eye kb - Injury of conjunctiva and corneal abrasion without foreign body, left eye - with FB kb Followup: kb - With: Emergency Department - When: As needed - Reason: Worsening of condition Followup: kb - With: Private Physician - When: 2 - 3 days - Reason: Recheck today's complaints, Continuance of care, Re-evaluation by your physician Discharge Instructions: - Discharge Summary Sheet kb - Corneal Abrasion, [id number] kb Forms: - Medication Reconciliation Form kb - Thank You Letter kb - Antibiotic Education kb - Prescription Opioid Use kb Prescriptions: - Erythromycin 5 mg/gram (0.5 %) Ophthalmic Ointment - apply 1 centimeter by OPHTHALMIC route 2-3 times daily for 7 days; 1 unit; kb Refills: 0, Product Selection Permitted Signatures: Ela Lawrence, GILL-C GILL-Mendy Rosenthal, RN RN kl
[2022-12-21 00:28] VITALS: BP 128/72; TEMP 97; O2SAT 98
== END 2022-12-21 00:11 | disposition home or self-care (01) ==
LOC: ER 23:20
PROC: 08C9XZZ Extirpation of Matter from Left Cornea, External Approach (ICD-10-PCS; principal; 2022-12-21)
DX: T15.02XA Foreign body in cornea, left eye, initial encounter (principal); Z72.0 Tobacco use
CPT/HCPCS: 99284

== ENCOUNTER 2022-12-21 18:57 | Emergency (ER) | payer OTHER ==
--- OUTSIDE RECORDS SUMMARY | 2022-12-21 19:01 | XMS REPORT | Continuity of Care Document ---
:1990 Author Organization [facility] t Address [address] [facility] [place] [address] Care Team Providers Name Role Phone Leah Enamorado MD Primary Care Physician [phone] LEAH ENAMORADO Attending Clinician Unavailable Leah Enamorado MD Attending Clinician Doctor Unassigned, [place] Attending Clinician Unavailable [facility] Nurse Visit Jennifer Attending Clinician UnavailFrederic Wright MD Attending Clinician FREDERIC COSME Attending Clinician Unavailable BEKAH QUINN Attending Clinician Unavailable BEKAH QUINN Attending Clinician Unavailable PRADEEP CRUZ Attending Clinician Unavailable SHY PHILLIP Attending Clinician Unavailable Payers Payer Name Policy Type Policy Number Effective Date Expiration Date Edvin rojas FORMERLY [facility] [id number] 2016 00:00:00 PLUS Problems Condition Condition Condition Status Onset Resolution Last Treating Co mments Source Name Details Category Date Date Treatment Clinician Date No known No known Disease Unive rs active active ity of problems problems [facility] Allergies, Adverse Reactions, Alerts Allergy Allergy Status Severity Reaction(s) Onset Inactive Treating Comm ents Source Name Type Date Date Clinician NO KNOWN Drug Active Univers ALLERGIE Class ity of S [facility] Social History Social Habit Start Date Stop Date Quantity Comments Source History of tobacco Cigarette Smoker University of use [facility] Exposure to 2022-08-09 2022-08-19 Not sure [facility]-CoV-2 (event) 00:00:00 15:49:00 [facility] Alcohol intake 2022-05-25 2022-05-25 Ex-drinker [facility] 00:00:00 00:00:00 (finding) [facility] Cigarettes smoked 2022-05-14 2022-05-14 Univers ity of current (pack per 00:00:00 00:00:00 [facility] ) - Reported Branch Tobacco use and 2022-05-14 2022-05-14 Smokeless Universit y of exposure 00:00:00 00:00:00 tobacco non-user [facility] [place] [facility] [birth year] [facility] Smoking Status Start Date Stop Date Source Smokes tobacco daily 2022-05-14 00:00:00 [facility] ity of [facility] Medications Ordered Filled Start Stop Current Ordering Indication Dosage Frequency Signature Comments Components Source Medication Medication Date Date Medication? Clinician (SIG) Name Name ALPRAZolam Yes [id number] .5mg Take 1 U nivers 0.5 mg 2-08 tablet by ity of tablet 00:00: mouth in [place] [address] the Medical morning Branch and 1 tablet in the evening. ALPRAZolam Yes [id number] .5mg Take 1 U nivers 0.5 mg 2-08 tablet by ity of tablet 00:00: mouth in [place] the Medical morning Branch and 1 tablet in the evening. BUSPIRONE 2021-07 Yes [id number] TAKE 1 Un otoniel 10 mg 0-19 TABLET BY ity of tablet 00:00: MOUTH [place] TWICE A Medical DAY Branch BUSPIRONE 2021-07 Yes [id number] TAKE 1 Un otoniel 10 mg 0-19 TABLET BY ity of tablet 00:00: MOUTH [place] TWICE A Medical DAY Branch BUSPIRONE 2021-07 Yes [id number] TAKE 1 Un otoniel 10 mg 0-19 TABLET BY ity of tablet 00:00: MOUTH [place] TWICE A Medical DAY Branch BUSPIRONE 2021-07 Yes [id number] TAKE 1 Un otoniel 10 mg 0-19 TABLET BY ity of tablet 00:00: MOUTH [place] TWICE A Medical DAY Branch BUSPIRONE 2021-07 Yes [id number] TAKE 1 Un otoniel 10 mg 0-19 TABLET BY ity of tablet 00:00: MOUTH [place] TWICE A Medical DAY Branch BUSPIRONE 2021-07 Yes [id number] TAKE 1 Un otoniel 10 mg 0-19 TABLET BY ity of tablet 00:00: MOUTH TWICE A Medical DAY Branch BUSPIRONE 2021- Yes [id number] TAKE 1 Un otoniel 10 mg 0-19 TABLET BY ity of tablet 00:00: MOUTH TWICE A Medical DAY Branch BUSPIRONE 2021-1 Yes [id number] TAKE 1 Un otoniel 10 mg 0-19 TABLET BY ity of tablet 00:00: MOUTH TWICE A Medical DAY Branch BUSPIRONE 2021-1 Yes [id number] TAKE 1 Un otoniel 10 mg 0-19 TABLET BY ity of tablet 00:00: MOUTH TWICE A Medical DAY Branch BUSPIRONE 2021-1 Yes [id number] TAKE 1 Un otoniel 10 mg 0-19 TABLET BY ity of tablet 00:00: MOUTH TWICE A Medical DAY Branch BUSPIRONE 2021-1 Yes [id number] TAKE 1 Un otoniel 10 mg 0-19 TABLET BY ity of tablet 00:00: MOUTH TWICE A Medical DAY Branch PROPRANOLOL 2022-0 Yes [id number] TAKE 1 Univers 10 mg 9-13 TABLET BY ity of tablet 00:00: MOUTH TWICE A Medical DAY Branch PROPRANOLOL 2022-0 Yes [id number] TAKE 1 Univers 10 mg 9-13 TABLET BY ity of tablet 00:00: MOUTH TWICE A Medical DAY Branch PROPRANOLOL 2022-0 Yes [id number] TAKE 1 Univers 10 mg 9-13 TABLET BY ity of tablet 00:00: MOUTH TWICE A Medical DAY Branch PROPRANOLOL 2022-0 Yes [id number] TAKE 1 Univers 10 mg 9-13 TABLET BY ity of tablet 00:00: MOUTH TWICE A Medical DAY Branch PROPRANOLOL 2022-0 Yes [id number] TAKE 1 Univers 10 mg 9-13 TABLET BY ity of tablet 00:00: MOUTH TWICE A Medical DAY Branch PROPRANOLOL 2022-0 Yes [id number] TAKE 1 Univers 10 mg 9-13 TABLET BY ity of tablet 00:00: MOUTH TWICE A Medical DAY Branch PROPRANOLOL 2022-0 Yes [id number] TAKE 1 Univers 10 mg 9-13 TABLET BY ity of tablet 00:00: MOUTH TWICE A Medical DAY Branch PROPRANOLOL 2022-0 Yes [id number] TAKE 1 Univers 10 mg 9-13 TABLET BY ity of tablet 00:00: MOUTH TWICE A Medical DAY Branch PROPRANOLOL 2-0 Yes [id number] TAKE 1 Univers 10 mg 9-13 TABLET BY ity of tablet 00:00: MOUTH [place] 00 TWICE A Medical DAY Branch PROPRANOLOL 2-0 Yes [id number] TAKE 1 Univers 10 mg 9-13 TABLET BY ity of tablet 00:00: MOUTH [place] 00 TWICE A Medical DAY Branch PROPRANOLOL 2022-0 Yes [id number] TAKE 1 Univers 10 mg 9-13 TABLET BY ity of tablet 00:00: MOUTH [place] 00 TWICE A Medical DAY Branch PROPRANOLOL 2022-0 Yes [id number] TAKE 1 Univers 10 mg 9-13 TABLET BY ity of tablet 00:00: MOUTH [place] 00 TWICE A Medical DAY Branch QUEtiapine 2021-0 Yes [id number] 50mg Take 1 U nivers (SEROQUEL) 8-08 tablet by ity of 50 mg 00:00: mouth at [place] tablet 00 bedtime. Medical Branch QUEtiapine 2021-0 Yes [id number] 50mg Take 1 U nivers (SEROQUEL) 8-08 tablet by ity of 50 mg 00:00: mouth at [place] tablet 00 bedtime. Medical Branch QUEtiapine 0 Yes [id number] 50mg Take 1 U nivers (SEROQUEL) 8-08 tablet by ity of 50 mg 00:00: mouth at [place] tablet 00 bedtime. Medical Branch QUEtiapine 0 Yes [id number] 50mg Take 1 U nivers (SEROQUEL) 8-08 tablet by ity of 50 mg 00:00: mouth at [place] tablet 00 bedtime. Medical Branch QUEtiapine 2021-0 Yes [id number] 50mg Take 1 U nivers (SEROQUEL) 8-08 tablet by ity of 50 mg 00:00: mouth at [place] tablet 00 bedtime. Medical Branch QUEtiapine 0 Yes [id number] 50mg Take 1 U nivers (SEROQUEL) 8-08 tablet by ity of 50 mg 00:00: mouth at [place] tablet 00 bedtime. Medical Branch QUEtiapine 0 Yes [id number] 50mg Take 1 U nivers (SEROQUEL) 8-08 tablet by ity of 50 mg 00:00: mouth at [place] tablet 00 bedtime. Medical Branch QUEtiapine 2021-0 Yes [id number] 50mg Take 1 U nivers (SEROQUEL) 8-08 tablet by ity of 50 mg 00:00: mouth at [place] tablet 00 bedtime. Medical Branch QUEtiapine 0 Yes [id number] 50mg Take 1 U nivers (SEROQUEL) 8-08 tablet by ity of 50 mg 00:00: mouth at [place] tablet 00 bedtime. Medical Branch QUEtiapine Yes [id number] 50mg Take 1 U nivers (SEROQUEL) 8-08 tablet by ity of 50 mg 00:00: mouth at [place] tablet 00 bedtime. Medical Branch QUEtiapine Yes [id number] 50mg Take 1 U nivers (SEROQUEL) 8-08 tablet by ity of 50 mg 00:00: mouth at [place] tablet 00 bedtime. Medical Branch QUEtiapine Yes [id number] 50mg Take 1 U nivers (SEROQUEL) 8-08 tablet by ity of 50 mg 00:00: mouth at [place] tablet 00 bedtime. Medical Branch QUEtiapine Yes [id number] 50mg Take 1 U nivers (SEROQUEL) 8-08 tablet by ity of 50 mg 00:00: mouth at [place] tablet 00 bedtime. Medical Branch QUEtiapine Yes [id number] 50mg Take 1 U nivers (SEROQUEL) 8-08 tablet by ity of 50 mg 00:00: mouth at [place] tablet 00 bedtime. Medical Branch ALPRAZOLAM Yes [id number] TAKE 1 U nivers 0.5 mg 3-17 TABLET BY ity of tablet 00:00: MOUTH [place] 00 TWICE A Medical DAY Branch ALPRAZOLAM Yes [id number] TAKE 1 U nivers 0.5 mg 3-17 TABLET BY ity of tablet 00:00: MOUTH [place] 00 TWICE A Medical DAY Branch ALPRAZOLAM 0 Yes [id number] TAKE 1 U nivers 0.5 mg 3-17 TABLET BY ity of tablet 00:00: MOUTH [place] 00 TWICE A Medical DAY Branch ALPRAZOLAM 0 Yes [id number] TAKE 1 U nivers 0.5 mg 3-17 TABLET BY ity of tablet 00:00: MOUTH [place] 00 TWICE A Medical DAY Branch ALPRAZOLAM Yes [id number] TAKE 1 U nivers 0.5 mg 3-17 TABLET BY ity of tablet 00:00: MOUTH [place] 00 TWICE A Medical DAY Branch ALPRAZOLAM 0 Yes [id number] TAKE 1 U nivers 0.5 mg 3-17 TABLET BY ity of tablet 00:00: MOUTH 00 TWICE A Medical DAY Branch ALPRAZOLAM 0 Yes [id number] TAKE 1 U nivers 0.5 mg 3-17 TABLET BY ity of tablet 00:00: MOUTH [place] 00 TWICE A Medical DAY Branch ALPRAZOLAM 0 Yes [id number] TAKE 1 U nivers 0.5 mg 3-17 TABLET BY ity of tablet 00:00: MOUTH 00 TWICE A Medical DAY Branch ALPRAZOLAM 0 Yes [id number] TAKE 1 U nivers 0.5 mg 3-17 TABLET BY ity of tablet 00:00: MOUTH 00 TWICE A Medical DAY Branch ALPRAZOLAM 0 Yes [id number] TAKE 1 U nivers 0.5 mg 3-17 TABLET BY ity of tablet 00:00: MOUTH 00 TWICE A Medical DAY Branch ALPRAZOLAM 0 Yes [id number] TAKE 1 U nivers 0.5 mg 3-17 TABLET BY ity of tablet 00:00: MOUTH 00 TWICE A Medical DAY Branch ALPRAZOLAM 0 2022- No [id number] TAKE 1 Univers 0.5 mg 3-17 02-08 TABLET BY ity of tablet 00:00: 00:00 MOUTH [place] 00 :00 TWICE A Medical DAY Branch ALPRAZOLAM 2021-0 2022- No [id number] TAKE 1 Univers 0.5 mg 3-17 02-08 TABLET BY ity of tablet 00:00: 00:00 MOUTH [place] 00 :00 TWICE A Medical DAY Branch busPIRone 2020-07 Yes [id number] 10mg Take 1 Un otoniel 10 mg 1-17 tablet by ity of tablet 00:00: mouth 2 00 (two) Medical times Branch daily. benztropine 2020-07 Yes [id number] 2mg Take 1 Univers 2 mg tablet 1-17 tablet by ity of 00:00: mouth 2 00 (two) Medical times Branch daily. propranoloL 2020-07 Yes [id number] 10mg Take 1 Univers 10 mg 1-17 tablet by ity of tablet 00:00: mouth 2 00 (two) Medical times Branch daily. busPIRone 2020-07 Yes [id number] 10mg Take 1 Un otoniel 10 mg 1-17 tablet by ity of tablet 00:00: mouth (two) Medical times Branch daily. benztropine 2020-07 Yes [id number] 2mg Take 1 Univers 2 mg tablet 1-17 tablet by ity of 00:00: mouth (two) Medical times Branch daily. propranoloL 2020-07 Yes [id number] 10mg Take 1 Univers 10 mg 1-17 tablet by ity of tablet 00:00: mouth (two) Medical times Branch daily. busPIRone 2020-07 Yes [id number] 10mg Take 1 Un [place]ton[place] 10 mg 1-17 tablet by ity of tablet 00:00: mouth (two) Medical times Branch daily. benztropine 2020-07 Yes [id number] 2mg Take 1 Univers 2 mg tablet 1-17 tablet by ity of 00:00: mouth (two) Medical times Branch daily. benztropine 2020-07 Yes [id number] 2mg Take 1 Univers 2 mg tablet 1-17 tablet by ity of 00:00: mouth (two) Medical times Branch daily. benztropine 2020-07 Yes [id number] 2mg Take 1 Univers 2 mg tablet 1-17 tablet by ity of 00:00: mouth (two) Medical times Branch daily. benztropine 2020-07 Yes [id number] 2mg Take 1 Univers 2 mg tablet 1-17 tablet by ity of 00:00: mouth (two) Medical times Branch daily. benztropine 2020-07 Yes [id number] 2mg Take 1 Univers 2 mg tablet 1-17 tablet by ity of 00:00: mouth (two) Medical times Branch daily. benztropine 2020-07 Yes [id number] 2mg Take 1 Univers 2 mg tablet 1-17 tablet by ity of 00:00: mouth (two) Medical times Branch daily. benztropine 2020-07 Yes [id number] 2mg Take 1 Univers 2 mg tablet 1-17 tablet by ity of 00:00: mouth (two) Medical times Branch daily. benztropine 2020-07 Yes [id number] 2mg Take 1 Univers 2 mg tablet 1-17 tablet by ity of 00:00: mouth 2 [place] (two) Medical times Branch daily. benztropine 2020-07 Yes [id number] 2mg Take 1 Univers 2 mg tablet 1-17 tablet by ity of 00:00: mouth 2 [place] 00 (two) Medical times Branch daily. benztropine 2020-07 Yes [id number] 2mg Take 1 Univers 2 mg tablet 1-17 tablet by ity of 00:00: mouth 2 [place] 00 (two) Medical times Branch daily. benztropine 2020-07 Yes [id number] 2mg Take 1 Univers 2 mg tablet 1-17 tablet by ity of 00:00: mouth 2 [place] (two) Medical times Branch daily. benztropine 2020-07 Yes [id number] 2mg Take 1 Univers 2 mg tablet 1-17 tablet by ity of 00:00: mouth 2 [place] (two) Medical times Branch daily. busPIRone 2020-07- No [id number] 10mg Take 1 U nivers 10 mg 1-17 10-19 tablet by ity of tablet 00:00: 00:00 mouth 2 [place] 00 :00 (two) Medical times Branch daily. propranoloL 2020-07- No [id number] 10mg Take 1 Univers 10 mg 1-17 09-13 tablet by ity of tablet 00:00: 00:00 mouth 2 [place] 00 :00 (two) Medical times Branch daily. mirtazapine 0 Yes Univer s 15 mg 9-18 ity of tablet 00:00: [place] Medical Branch mirtazapine 2020-0 Yes Univer s 15 mg 9-18 ity of tablet 00:00: [place] Medical Branch mirtazapine 2020-0 Yes Univer s 15 mg 9-18 ity of tablet 00:00: [place] Medical Branch mirtazapine 2020-0 Yes Univer s 15 mg 9-18 ity of tablet 00:00: [place] Medical Branch mirtazapine 2020-0 Yes Univer s 15 mg 9-18 ity of tablet 00:00: [place] Medical Branch mirtazapine 2020-0 Yes Univer s 15 mg 9-18 ity of tablet 00:00: [place] 00 Medical Branch mirtazapine 2021-0 Yes Univer s 15 mg 9-18 ity of tablet 00:00: [place] 00 Medical Branch mirtazapine 2021-0 Yes Univer s 15 mg 9-18 ity of tablet 00:00: [place] 00 Medical Branch mirtazapine 2021-0 Yes Univer s 15 mg 9-18 ity of tablet 00:00: [place] 00 Medical Branch mirtazapine 2021-0 Yes Univer s 15 mg 9-18 ity of tablet 00:00: [place] [address] Medical Branch mirtazapine 2021-0 Yes Univer s 15 mg 9-18 ity of tablet 00:00: [place] [address] Medical Branch mirtazapine 1-0 Yes Univer s 15 mg 9-18 ity of tablet 00:00: [place] [address] Medical Branch mirtazapine 1-0 Yes Univer s 15 mg 9-18 ity of tablet 00:00: [place] [address] Medical Branch mirtazapine 2021-0 Yes Univer s 15 mg 9-18 ity of tablet 00:00: [place] 00 Medical Branch hydrOXYzine 2021-0 Yes Univer s 25 mg 9-16 ity of capsule 00:00: [place] [address] Medical Branch hydrOXYzine 2021-0 Yes Univer s 25 mg 9-16 ity of capsule 00:00: [place] [address] Medical Branch hydrOXYzine 1-0 Yes Univer s 25 mg 9-16 ity of capsule 00:00: [place] [address] Medical Branch hydrOXYzine 2021-0 Yes Univer s 25 mg 9-16 ity of capsule 00:00: [place] 00 Medical Branch hydrOXYzine 2021-0 Yes Univer s 25 mg 9-16 ity of capsule 00:00: [place] [address] Medical Branch hydrOXYzine 2021-0 Yes Univer s 25 mg 9-16 ity of capsule 00:00: [place] [address] Medical Branch hydrOXYzine 1-0 Yes Univer s 25 mg 9-16 ity of capsule 00:00: [place] [address] Medical Branch hydrOXYzine 2021-0 Yes Univer s 25 mg 9-16 ity of capsule 00:00: [place] [address] Medical Branch hydrOXYzine 2021-0 Yes Univer s 25 mg 9-16 ity of capsule 00:00: [place] [address] Medical Branch hydrOXYzine 1-0 Yes Univer s 25 mg 9-16 ity of capsule 00:00: [place] 00 Medical Branch hydrOXYzine 2020-0 Yes Univer s 25 mg 9-16 ity of capsule 00:00: [place] 00 Medical Branch hydrOXYzine 2020-0 3- No Unive rs 25 mg 03-27 ity of capsule 00:00: 00:00 [place] 00 :00 Medical Branch hydrOXYzine 2020-0 3- No Unive rs 25 mg 03-27 ity of capsule 00:00: 00:00 [place] 00 :00 Medical Branch Vital Signs Vital Name Observation Time Observation Value Comments Source Systolic blood 2022-08-19 21:56:00 136 mm[Hg] Univer sity of [facility] Branch Diastolic blood 2022-08-19 21:56:00 86 mm[Hg] [facility] Heart rate 2022-08-19 21:51:00 99 /min Universi ty of [facility] Body height 2022-08-19 21:51:00 172.7 cm Universi ty of [facility] Body weight 2022-08-19 21:51:00 73.029 kg Universi ty of [facility] BMI 2022-08-19 21:51:00 24.48 kg/m2 Universi ty of [facility] Body height 2022-05-25 16:59:00 172.7 cm Universi ty of [facility] Body height 2022-05-08 13:45:00 177.8 cm Universi ty of [facility] Systolic blood 2022-02-16 16:29:00 135 mm[Hg] Univer sity of [facility] Branch Diastolic blood 2022-02-16 16:29:00 87 mm[Hg] Unive rsity of [facility] Branch Heart rate 2022-02-16 16:29:00 71 /min Universi ty of [facility] Branch Body height 2022-02-16 16:29:00 177.8 cm Universi ty of [facility] Branch Body weight 2022-02-16 16:29:00 64.864 kg Universi ty of [facility] BMI 2022-02-16 16:29:00 20.52 kg/m2 Universi ty of [facility] Procedures Procedure Date / Time Performing Clinician Source Performed ASSIGNMENT OF BENEFITS 2022-08-19 21:50:10 Doctor Unassigned, No [facility] Branch AUTHORIZATION FOR 2022-08-03 06:01:00 Doctor Unassigned, No [facility] RELEASE OF [facility] Encounters Start End Encounter Admission Attending Care Care Encounter Source Date/Time Date/Time Type Type Clinicians Facility Department ID 2022-12-15 Outpatient CBRIDGE CBRIDEDUARDO 2.16.840.1 [facility] 18:57:21 [id number] [id number] 2022-09-07 2022-09-07 Outpatient [facility] [id number] Delon 11:41:51 11:41:[id number] [facility] 2022-09-02 2022-09-02 [facility] [id number] Univers 16:00:00 16:00:[facility]-08-[facility] 2022-08-25 Outpatient [facility] [id number] Del[place] 16:39:43 16:39:[id number] [facility] 2022-08-19 2022-08-19 Office [facility] [id number] [facility] 16:00:00 16:15:00 Visit [facility] [id number] it y of [place] 4.2.7.2.686 Kirill as CHAD?BLEA [id number] [address] MEDICAL OFFICE [facility] 2022-08-19 2022-08-19 Outpatient [facility] [id number] Univers 16:00:00 16:00:00 LEAH marino [facility] 2022-08-19 2022-08-19 Orders Doctor SUERO 1.2.840.114 [id number] Univers 00:00:00 00:00:00 Only Unassigned, KORIN 350.1.13.10 ity of [place] [facility] 4.2.7.2.686 Kirill as [id number] [address] 2022-08-03 2022-08-03 Orders Doctor SUERO 1.2.840.114 [id number] Univers 00:00:00 00:00:00 Only Unassigned, KORIN 350.1.13.10 ity of [place] [facility] 4.2.7.2.686 Kirill [id number] [address] 2022-05-25 2022-05-25 Blayne Mathis Nurse Visit Jennifer [facility] [id number] [facility] 11:00:00 11:15:00 Visit Frederic Cosme MULTISPEC 350.1.13.1 0 ity of [place] 4.2.7.2.686 [facility] [place] [id number] [address] [facility] 2022-05-25 2022-05-25 Outpatient Tommy COSME [facility] [id number] Univers 11:00:00 11:00:00 FREDERIC marino of [facility] 2022-05-21 2022-05-21 Outpatient [facility] [id number] [place] 09:01:05 09:01:05 1110 F [place] 2022 2022 Outpatient [facility] [id number] [place] 15:04:46 15:04:46 1104 F [place] 2022-05-14 2022-05-14 Outpatient Tommy COSME [facility] [id number] [facility] 08:30:00 17:02:11 FREDERIC marino [facility] 2022-05-14 2022-05-14 Office Ba [facility] [id number] [facility] 08:30:00 09:00:00 Visit Frederic Sanders MULTISPEC 350.1.13.10 ity of [place] 4.2.7.2.686 [facility] [id number] [address] DI[facility]ETES [facility]IC 2022-05-12 2022-05-12 Outpatient Tommy ENAMORADO [facility] [id number] Univers 09:45:00 09:45:00 LEAH italexia of [facility] 2022-05-08 2022-05-08 Office Bekah Quinn [facility] 1.2.840.114 [id number] [facility] 09:00:00 09:00:00 Visit MULTISPEC 350.1.13.10 ity of [place] 4.2.7.2.686 [facility] [place] [id number] [address] [facility] 2022-05-08 2022-05-08 Outpatient BEKAH DE LA ROSA [facility] [id number] Univers 09:00:00 08:59:01 QUINN BEKAH it y of [facility] 2022-05-06 2022-05-06 Outpatient R KELSEA [facility] [id number] Univers 11:30:00 11:30:00 LEAH alexia [facility] 2022-05-05 2022-05-05 [facility] 1.2.840.114 [id number] Univers 00:00:00 00:00:00 [facility] [id number] it y of [place] 4.2.7.2.686 Kirill as CHAD?BLEA [id number] [facility] [address] OFFICE [facility] 2022-04-29 2022-04-29 [facility] 1.2.840.114 [id number] Univers 00:00:00 00:00:00 [facility] [id number] it y of [place] 4.2.7.2.686 Kirill as CHAD?BLEA [id number] Ma mitch [address] OFFICE [facility] 2022-03-24 2022-03-24 [facility] 1.2.840.114 [id number] [facility] 00:00:00 00:00:00 [facility] [id number] it y of [place] 4.2.7.2.686 Kirill as CHAD?BLEA [id number] [address] OFFICE [facility] 2022-03-19 2022-03-19 [facility] [id number] Univers 13:00:00 13:00:00 LEAH [facility] [place] 2022-02-16 2022-02-16 Office [facility] 1.2.840.114 [id number] Univers 11:15:00 11:30:00 Visit [facility] [id number] it y of [place] 4.2.7.2.686 Kirill as CHAD?BLEA [id number] Ma mitch [address] OFFICE [facility] 2022-02-162022-02-16 Outpatient Tomym ENAMORADO [facility] [id number] Univers 11:15:00 11:15:00 LEAH marino [facility] 2022-02-16 2022-02-16 Outpatient Tommy ENAMORADO [facility] [id number] Univers 11:15:00 11:15:00 LEAH alexia [facility] 2022-02-16 2022-02-16 Telephone [facility] 1.2.840.114 [id number] Univers 00:00:00 00:00:00 [facility] 350.1.13.10 it y of [place] 4.2.7.2.686 Kirill as CHAD?BLEA [id number] [address] OFFICE [facility] 2021-10-27 2021-10-27 [facility] 1.2.840.114 [id number] Univers 00:00:00 00:00:00 [facility] 350.1.13.10 it y of [place] 4.2.7.2.686 Kirill as CHAD?BLEA [id number] [address] OFFICE [facility] 2021-08-18 2021-08-18 [facility] 1.2.840.114 [id number] Univers 00:00:00 00:00:00 [facility] [id number] it y of [place] 4.2.7.2.686 Kirill as CHAD?BLEA [id number] [address] 2021-07-18 2021-07-18 [facility] 1.2.840.114 [id number] Univers 00:00:00 00:00:00 [facility] HEALTH [id number] it y of [place] 4.2.7.2.686 Kirill as CHAD?BLEA [id number] [address] 2021-07-07 2021-07-07 Outpatient [facility] [id number] Univers 13:15:00 13:15:00 LEAH jamila [facility] 2021-06-27 2021-06-27 Telephone [facility] 1.2.840.114 [id number] Univers 00:00:00 00:00:00 Leah HEALTH 350.1.13.10 it y of [place] 4.2.7.2.686 Kirill as CHAD?BLEA [id number] [address] MEDICAL OFFICE [facility] 2021-06-12 2021-06-12 Out[facility] [id number] Univers 09:30:00 09:30:00 PRADEEP [facility] [place] 2021-06-10 2021-06-10 [facility] [id number] Univers 13:30:00 13:30:00 PRADEEP [facility] [place] 2021-06-03 2021-06-03 Outpatient [facility] [id number] Univers 15:15:00 15:15:00 LEAH [facility] [place] 2021-05-28 2021-05-28 Office [facility] 1.2.840.114 [id number] Univers 16:46:42 17:04:56 Visit [facility] [id number] it y of [place] 4.2.7.2.686 Kirill as CHAD?BLEA [id number] [address] OFFICE [facility] 2021-05-28 2021-05-28 Outpatient [facility] [id number] Univers 16:15:00 17:04:56 [facility] 2021-05-23 2021-05-23 [facility]phone [facility] Center [id number] [facility] 00:00:00 00:00:00 [facility] [id number] it y of [place] [id number] Kirill as CHAD?BLEA [phone] [address] OFFICE [facility] 2021-05-01 2021-05-01 Outpatient [facility] [id number] [facility] 09:30:00 09:30:00 PRADEEP [facility] 2021-04-09 2021-04-09 [facility] [id number] Univers 13:56:04 14:11:04 [facility] [id number] it y of [place] [id number] Kirill as Chad?Blea [phone] Ma mitch [address] Medical Office Building 2021-04-09 2021-04-09 Outpatient Tommy ENAMORADO [facility] [id number] Univers 14:00:00 14:00:00 LEAH [facility] 2021-04-08 2021-04-08 Outpatient Tommy ENAMORADO [facility] [id number] Univers 14:15:00 14:15:00 LEAH [facility] 2021-04-08 2021-04-08 Outpatient Tommy ENAMORADO [facility] [id number] Univers 09:00:00 09:00:00 LEAH [facility] 2021-04-02 2021-04-02 Outpatient Tommy PHILLIP [facility] [id number] Univers 10:30:00 10:30:00 SHY [facility] 2021-04-02 2021-04-02 Orders Doctor NIMO [id number] Univers 00:00:00 00:00:00 Only Unassigned, KORIN [id number] ity of [place] [facility] [id number] Kirill as [phone] [address] 2020-04-15 2020-04-15 Outpatient Tommy ENAMORADO [facility] [id number] Univers 09:00:00 09:00:00 LEAH alexia [facility] 2020-04-03 2020-04-03 Outpatient Tommy ENAMORADO [facility] [id number] Univers 09:15:00 09:15:00 LEAH alexia [facility] 2020-03-04 2020-03-04 Outpatient Tommy ENAMORADO [facility] [id number] Univers 09:30:00 09:30:00 LEAH [facility] 2020-01-15 2020-01-15 Outpatient Tommy ENAMORADO [facility] [id number] Univers 14:30:00 14:30:00 LEAH [facility] 2020-01-02 2020-01-02 Outpatient Tommy ENAMORADO [facility] [id number] Univers 13:30:00 13:30:00 LEAH marino [facility] Results This patient has no known results.
--- NOTE | 2022-12-21 19:53 | EDPHYS ---
Physician Documentation [facility] Name: Mickey Lee Age: 32 yrs Sex: Male : 1990 Arrival Date: 12/21/2022 Time: 18:57 Bed DIS1 Private MD: ED Physician Jaren Garcia HPI: 12/21 19:49 This 32 yrs old Male presents to ER via Ambulatory with complaints of Redness of Eye. kb 19:49 The patient is experiencing matting or discharge, redness. Onset: The symptoms/episode kb began/occurred 3 day(s) ago. Duration: the symptoms are continuous. Aggravated by nothing. Alleviated by nothing. Associated signs and symptoms: Pertinent positives: None. Severity of symptoms: At their worst the symptoms were mild in the emergency department the symptoms are unchanged. The patient has not experienced similar symptoms in the past. The patient has been recently seen at the [facility] Emergency Department, yesterday. Pt reports he has had a film over his left eye today and wanted to know if we could clean it out. Historical: - Allergies: 19:37 No Known Allergies; lg3 - PMHx: 19:37 Anxiety; Depression; Schizophrenia; Tachycardia; lg3 - PSHx: 19:37 None; lg3 - Immunization history:: Adult Immunizations up to date, Client reports receiving the 2nd dose of the Covid vaccine. - Social history:: Smoking status: Patient reports the use of cigarette tobacco products, smokes one pack cigarettes per day. Patient uses alcohol, on a daily basis. claims drinking about a 6 pack/day. ROS: 19:48 Constitutional: Negative for fever, chills, and weight loss. kb 19:48 Eyes: Positive for discharge. 19:48 All other systems are negative. Exam: 19:48 Constitutional: This is a well developed, well nourished patient who is awake, alert, kb and in no acute distress. Head/Face: Normocephalic, atraumatic. ENT: Moist Mucous membranes Cardiovascular: Regular rate and rhythm with a normal S1 and S2. No gallops, murmurs, or rubs. No pulse deficits. Respiratory: Respirations even and unlabored. No increased work of breathing. Talking in full sentences Skin: Warm, dry with normal turgor. Normal color. MS/ Extremity: Pulses equal, no cyanosis. Neurovascular intact. Full, normal range of motion. Neuro: Awake and alert, GCS 15, oriented to person, place, time, and situation. Moves all extremities. Normal gait. 19:48 Eyes: Periorbital structures: appear normal, Pupils: equal, round, and reactive to light and accomodation, Extraocular movements: intact throughout, Conjunctiva: exudate, in the left eye, injected, in the left eye. Vital Signs: 19:35 BP 123 / 92; Pulse 81; Resp 17 S; Temp 98.4(O); Pulse Ox 98% on R/A; Weight 73.03 kg; lg3 Height 5 ft. 10 in. ; 19:35 Body Mass Index 23.10 (73.03 kg, 177.8 cm) lg3 MDM: 19:21 Patient medically screened. kb 19:49 Differential diagnosis: Corneal abrasion of Corneal ulcer of Foreign body in Data kb reviewed: vital signs, nurses notes. Counseling: I had a detailed discussion with the patient and/or guardian regarding: the historical points, exam findings, and any diagnostic results supporting the discharge/admit diagnosis, the need for outpatient follow up, an opthalmologist, to return to the emergency department if symptoms worsen or persist or if there are any questions or concerns that arise at home. 19:51 ED course: Pt was seen by me last night for foreign body and conjunctival abrasion. FB kb was removed and erythomycin ointment prescribed. Pt has some exudate and erythema to eye yesterday. Today mucus is noted to left eye. Pt denies pain or FB sensation like he had, but reports it feels like he has a film on his eye that he cannot get off.. Administered Medications: No medications were administered Disposition Summary: 12/21/22 19:52 Discharge Ordered Location: Home kb Condition: Stable kb Diagnosis - Other conjunctivitis kb Followup: kb - With: Emergency Department - When: As needed - Reason: Worsening of condition Followup: kb - With: Private Physician - When: 2 - 3 days - Reason: Recheck today's complaints, Continuance of care, Re-evaluation by your physician Discharge Instructions: - Discharge Summary Sheet kb - Bacterial Conjunctivitis, Adult, [id number] kb Forms: - Medication Reconciliation Form kb - Thank You Letter kb - Antibiotic Education kb - Prescription Opioid Use kb Signatures: Ela Lawrence PROPERTY CONTROLLER-C PROPERTY CONTROLLER-Ckb Marie Cosme, RN RN lg3 Corrections: (The following items were deleted from the chart) 20:09 19:23 Misc. Order ordered. kb kd3
--- NOTE | 2022-12-21 19:53 | ER ---
Nurse's Notes [facility] Name: Mickey Lee Age: 32 yrs Sex: Male : 1990 Arrival Date: 12/21/2022 Time: 18:57 Bed DIS1 Private MD: Diagnosis: Other conjunctivitis Presentation: 12/21 19:35 Chief complaint: Patient states: i have pink eye in my let eye and there is a kylie over lg3 it making it hard to see. Coronavirus screen: Client denies travel out of the [place] in the last 14 days. At this time, the client does not indicate any symptoms associated with coronavirus-19. Ebola Screen: No symptoms or risks identified at this time. Initial Sepsis Screen: Does the patient meet any 2 criteria? No. Patient's initial sepsis screen is negative. Does the patient have a suspected source of infection? No. Patient's initial sepsis screen is negative. Risk Assessment: Do you want to hurt yourself or someone else? Patient reports no desire to harm self or others. Onset of symptoms was December 21, 2022 at 19:37. 19:35 Method Of Arrival: Ambulatory lg3 19:35 Acuity: MISBAH 5 lg3 Triage Assessment: 19:37 General: Appears in no apparent distress. uncomfortable, Behavior is calm, cooperative. lg3 Pain: Complains of pain in left eye. EENT: Eyes are tearing on left eye with exudate noted from left eye. Neuro: No deficits noted. Arriola Agitation-Sedation Scale (RASS): 0 - Alert and Calm Level of Consciousness is awake, alert, obeys commands, Oriented to person, place, time, situation. Cardiovascular: No deficits noted. Denies chest pain, shortness of breath. Respiratory: No deficits noted. Airway is patent Respiratory effort is even, unlabored, Respiratory pattern is regular, symmetrical. GI: No deficits noted. No signs and/or symptoms were reported involving the gastrointestinal system. : No deficits noted. No signs and/or symptoms were reported regarding the genitourinary system. Derm: Skin is intact, is healthy with good turgor, Skin is dry, Skin is normal, Skin temperature is warm. Musculoskeletal: Swelling present in left eye. Historical: - Allergies: 19:37 No Known Allergies; lg3 - PMHx: 19:37 Anxiety; Depression; Schizophrenia; Tachycardia; lg3 - PSHx: 19:37 None; lg3 - Immunization history:: Adult Immunizations up to date, Client reports receiving the 2nd dose of the Covid vaccine. - Social history:: Smoking status: Patient reports the use of cigarette tobacco products, smokes one pack cigarettes per day. Patient uses alcohol, on a daily basis. claims drinking about a 6 pack/day. Screenin:08 [facility] ED Fall Risk Assessment (Adult) History of falling in the last 3 months, kd3 including since admission No falls in past 3 months (0 pts) Confusion or Disorientation No (0 pts) Intoxicated or Sedated No (0 pts) Impaired Gait No (0 pts) Mobility Assist Device Used No (0 pt) Altered Elimination No (0 pt) Score/Fall Risk Level 0 - 2 = Low Risk Maintained a safe environment. Abuse screen: Denies threats or abuse. Denies injuries from another. Nutritional screening: No deficits noted. Tuberculosis screening: No symptoms or risk factors identified. Assessment: 20:08 General: Appears in no apparent distress. Behavior is calm, cooperative. kd3 Vital Signs: 19:35 BP 123 / 92; Pulse 81; Resp 17 S; Temp 98.4(O); Pulse Ox 98% on R/A; Weight 73.03 kg; lg3 Height 5 ft. 10 in. ; 19:35 Body Mass Index 23.10 (73.03 kg, 177.8 cm) lg3 ED Course: 19:01 Patient arrived in ED. mr 19:21 Gilbert Lawrenceistin, GILL[facility]C [facility] kb 19:21 Jaren Garcia MD is Attending Physician. kb 19:35 Marie Cosme, SAHIL is Primary Nurse. lg3 19:37 Triage completed. lg3 19:37 Arm band placed on right wrist. lg3 20:09 Patient has correct armband on for positive identification. kd3 20:09 No provider procedures requiring assistance completed. Patient did not have IV access kd3 during this emergency room visit. Administered Medications: No medications were administered Medication: 20:09 VIS not applicable for this client. kd3 Outcome: 19:52 Discharge ordered by . kb 20:09 Discharged to home ambulatory. kd3 20:09 Condition: stable 20:09 Discharge instructions given to patient, Instructed on discharge instructions, follow up and referral plans. 20:09 Patient left the ED. kd3 Signatures: Ela Lawrence, SAM GARLAND-[place] mr Marie Cosme, RN RN lg3 Mila Mcgrath, RN RN kd3
[2022-12-21 21:22] VITALS: BP 123/92; TEMP 98.4; O2SAT 98
== END 2022-12-21 20:09 | disposition home or self-care (01) ==
LOC: ER 18:57
DX: H10.89 Other conjunctivitis (principal); F17.210 Nicotine dependence, cigarettes, uncomplicated
CPT/HCPCS: 99282